=== PATIENT | female | born 1960 | race Caucasian/White ===

== ENCOUNTER 2024-01-10 13:39 | Outpatient (AMB) | payer MEDICARE, SELFPAY ==
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
[2024-01-10 13:47] VITALS: BP 138/73; PULSE 65; RESP 18; TEMP 36.7; O2SAT 96
== END 2024-01-10 14:55 | disposition home or self-care (01) ==
LOC: HODAHC 13:39
PROVIDERS: PCP Student in an Organized Health Care Education/Training Program; Referring Provider Student in an Organized Health Care Education/Training Program; Supervising Provider Internal Medicine; Visit Provider Student in an Organized Health Care Education/Training Program
DX: R42 Dizziness and giddiness (principal); R07.9 Chest pain, unspecified; E11.65 Type 2 diabetes mellitus with hyperglycemia; Z79.4 Long term (current) use of insulin; E55.9 Vitamin D deficiency, unspecified; I10 Essential (primary) hypertension; Z95.0 Presence of cardiac pacemaker
CPT/HCPCS: 99213; G0463

== ENCOUNTER 2024-03-31 17:40 | Emergency (ER) | payer MEDICARE, SELFPAY ==
[2024-03-31 17:42] VITALS: BP 184/99; PULSE 100; RESP 18; TEMP 36.8; O2SAT 96
[2024-03-31 17:44] VITALS: BMI 31.3
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
[2024-03-31 18:48] LABS: Basophils # (Auto) 0.1 Thou/mm3 (0.0-0.2); Basophils % (Auto) 1 % (0-2.5); Eosinophils # (Auto) 0.1 Thou/mm3 (0.0-0.5); Eosinophils % (Auto) 1 % (0-10); Hematocrit 44.1 % (36.0-46.0); Hemoglobin 15.1 g/dL (12.0-16.0); Immature Granulocytes % (Auto) 1 % (0-0); Immature Granulocytes Auto 0.06 Thou/mm3 (0.00-0.00); Lymphocytes # (Auto) 2.6 Thou/mm3 (1.0-4.8); Lymphocytes % (Auto) 36 % (10-50); Mean Corpuscular HGB Conc 34.2 g/dl (31.0-37.0); Mean Corpuscular Hemoglobin 29.8 pg (25.0-35.0); Mean Corpuscular Volume 87 fL (80-100); Monocytes # (Auto) 0.6 Thou/mm3 (0.0-0.8); Monocytes % (Auto) 8 % (0-12); Neutrophils % (Auto) 54 % (37-80); Nucleated Red Blood Cell % 0 /100 WBC (0); Platelet Count 190 Thou/mm3 (140-440); RDW Standard Deviation 41.9 fL (36.4-46.3); Red Blood Count 5.07 Miln/mm3 (4.00-5.20); White Blood Count 7.4 Thou/mm3 (3.6-11.0)
[2024-03-31 19:03] VITALS: BP 179/102; PULSE 88; RESP 18; TEMP 36.7; O2SAT 97
[2024-03-31 19:27] LABS: Alanine Aminotransferase 18 U/L (10-49); Albumin, Serum 4.1 gm/dL (3.4-4.8); Albumin/Globulin Ratio 1.4 (1.2-2.2); Alkaline Phosphatase 120 U/L (46-116); Anion Gap 9 (7-16); Aspartate Amino Transferase 18 U/L (0-34); BUN/Creatinine Ratio 11 Ratio (12-20); Bilirubin,Total 0.7 mg/dL (0.3-1.2); Blood Urea Nitrogen 9 mg/dL (9-23); Calcium 11.1 mg/dL (8.3-10.6); Calcium (Corrected) 11.1 mg/dL (8.5-10.1); Carbon Dioxide 24.2 mMol/L (20.0-31.0); Chloride 103 mMol/L (98-107); Creatinine (Component) 0.8 mg/dL (0.6-1.3); Estimated Creatinine Clearance 82.1 mL/min (>60); Globulin 2.9 gm/dL (2.3-3.5); Osmolality,Calculated 287 (275-295); Potassium 4.6 mMol/L (3.4-5.1); Sodium 136 mMol/L (136-145); eGFR > 60 See Note
[2024-03-31 19:32] LABS: Glucose 401 mg/dL (74-106)
[2024-03-31 19:35] VITALS: PULSE 90; RESP 16; O2SAT 98
--- NOTE | 2024-03-31 21:00 | PC.NURSE ---
Do FSBS Q1H X 3 after administering Insulin SQ per Roberto SHEETS.
--- NOTE | 2024-03-31 21:10 | PC.NURSE ---
Pt refused Insulin, FSBS 351 mg/dl, Roberto SHEETS informed.
[2024-03-31 21:48] VITALS: BP 91/53; PULSE 94; RESP 20; TEMP 36.7; O2SAT 97
[2024-03-31 22:44] LABS: Collection Type, Urine Clean Catch
--- NOTE | 2024-03-31 23:05 | PD.EDADDENDU ---
Emergency Room Addendum Addendum Narrative: 2300: Care assumed from Roberto Reyes NP. Past medical, surgical, social and family history reviewed. Vitals and home medications reviewed. Results and treatment plan discussed. I will assume the care of the patient at this time and will follow the patient, pending medical clearance for crisis evaluation. Please refer to the emergency department record for history and examination from initial visit. Patient is medically clear for crisis evaluation. The patient was placed in ED observation care at 03/31/24 at 2355 hours. The patient was placed in ED observation care because of pending psychiatric evaluation. The patients past medical history, social history, and family history were reviewed. The plan of care will include serial examinations. 0600: Care signed out to Dr. Wade (emergency physician). Past medical, surgical, social and family history reviewed. Vitals and home medications reviewed. Results and treatment plan discussed. They will assume the care of the patient at this time and will follow the patient, pending crisis evaluation.
[2024-03-31 23:11] LABS: Amphetamine/Methamp Scrn,U Negative (Negative); Barbiturate Screen,Urine Negative (Negative); Benzodiazepines Screen,Urine Negative (Negative); Benzoylecgonine Screen, Ur Negative (Negative); Fentanyl Screen,Urine Negative (Negative); Opiate Screen,Urine Negative (Negative); THC Screen,Urine Negative (Negative)
[2024-03-31 23:26] LABS: Bacteria,Urine Rare; Bilirubin,Urine Negative (Negative); Blood,Urine Negative (Negative); Clarity,Urine Clear (Clear/Hazy); Color,Urine Lt-Yellow (Lt Yel-Yel); Glucose, Urine 4+ (Negative); Ketones,Urine 2+ (Negative); Leukocyte Esterase,Urine Negative (Negative); Nitrite,Urine Negative (Negative); Protein,Urine Negative (Neg - Trace); RBC,Urine 7 /hpf (0-3); Specific Gravity,Urine 1.028 (1.001-1.035); Squamous Epithelial Cell,Urine < 1 /hpf (0-5); Urobilinogen,Urine Negative mg/dL (0.0-1.0); WBC,Urine 3 /hpf (0-5)
[2024-04-01] VITALS (7 sets, daily range): BP systolic 117–147; BP diastolic 67–82; PULSE 70–82; RESP 16–22; TEMP 36.2–36.8; O2SAT 95–96
--- NOTE | 2024-04-01 00:54 | PC.NURSE ---
Sleeping, no distress noted.
--- NOTE | 2024-04-01 07:07 | PD.EDADDENDU ---
Emergency Room Addendum <Janene Carrasquillo - Last Filed: 04/01/24 07:08> Addendum Narrative: 0600: Care assumed from Dr. Graves, the previous shift emergency physician. Past medical, surgical, social and family history reviewed. Vitals and home medications reviewed. I will assume the care of the patient at this time, pending mental health evaluation. Please refer to the emergency department record for history and examination from initial visit.? <Rian Wade MD - Last Filed: 04/01/24 17:23> Addendum Narrative: 0600: Care assumed from Dr. Graves, the previous shift emergency physician. Past medical, surgical, social and family history reviewed. Vitals and home medications reviewed. I will assume the care of the patient at this time, pending mental health evaluation. Please refer to the emergency department record for history and examination from initial visit. I was told that the patient on high blood sugar is secondary to the fact that she is diabetic and she refused insulin. By 4 PM, the blood sugar is still 470. We literally beg her to receive insulin the same dose that she takes at home which is lispro 12 units subcu 3 times daily. And finally she relented and let us gave it to her. She also requesting tramadol. She said that she used to take tramadol for chronic pain. And because she has no contraindication to tramadol, I will put her on some tramadol for pain. Twelve-lead EKG at 1704 interpreted by me: Normal sinus rhythm. Heart rate of 80. Old Q waves are noted in leads III and aVF. No ST segment elevation or depression. No PVC. No STEMI. Regular rate and rhythm. 6 PM, the patient is still pending 5150 placement, she is stable and is signed out to Dr. Graves
--- NOTE | 2024-04-01 07:31 | PC.NURSE ---
PT ASLEEP IN BED IN NO APPARENT DISTRESS. PT DENIES PAIN OR DISCOMFORT. PT DENIES SI/HI. PT DENIES AUDITORY OR VISUAL HALLUCINATIONS. PT COOPERATIVE. 1 TO 1 SITTER AT BEDSIDE
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
[2024-04-01] MEDS: traMADol HCL 50 MG TABLET PO (15:12)
--- NOTE | 2024-04-01 16:52 | EKG_ITS ---
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
[2024-04-01] MEDS: INSULIN LISPRO (AdmeLOG) 1 UNIT/0.01 ML UNIT 12 UNIT SC (16:54)
--- NOTE | 2024-04-01 17:18 | PC.CC ---
1718 ASWCaty received a call that patient will remain in there queue.
--- NOTE | 2024-04-01 18:15 | EDNOTE_ITS ---
Emergency Room Addendum <Natalee Alaniz - Last Filed: 04/01/24 20:03> Addendum Narrative: 1800: Care assumed from Dr. Wade, the previous shift emergency physician. Past medical, surgical, social and family history reviewed. Vitals and home medications reviewed. I will assume the care of the patient at this time, pending placement. Please refer to the emergency department record for history and examination. While in ED observation the patient will have access to water, food, and personal hygiene. If the patient takes home medication(s), they will be continued in ED observation. Physical exam by me shows patient under no acute distress at this time. 0600: Signed out to [facility] provider, pending serial examinations and final disposition. <Maribell Goodwin - Last Filed: 04/02/24 03:24> Addendum Narrative: 1800: Care assumed from Dr. Wade, the previous shift emergency physician. Past medical, surgical, social and family history reviewed. Vitals and home medications reviewed. I will assume the care of the patient at this time, pending placement. Please refer to the emergency department record for history and examination. While in ED observation the patient will have access to water, food, and personal hygiene. If the patient takes home medication(s), they will be patrick nued in ED observation. Physical exam by me shows patient under no acute distress at this time. 0600: Signed out to [facility] provider, pending placement. Attestation <Natalee Alaniz - Last Filed: 04/01/24 20:03> Attestation Scribe Attestation: Heidi Whatley, am scribing for and in the presence of Dr. Graves. Provider Notation: Although this document has been carefully reviewed, there may still be some phonetic and other typographical errors. These errors are purely grammatical due to imperfections in the software program and should not be construed in any way to compromise the substance of the patient's medical care during this visit.
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
--- NOTE | 2024-04-01 23:58 | PC.NURSE ---
2330 ASSUMED CARE OF PT AT THIS TIME. SITTER AT BEDSIDE.
[2024-04-02 01:11] VITALS: BP 142/95; PULSE 72; RESP 19; TEMP 36.6; O2SAT 96
--- NOTE | 2024-04-02 02:54 | PC.NURSE ---
0000 ASKED PT IF I COULD CHECK HER GLUCOSE AND SHE SAID NO BECAUSE SHE HAD JUST BEEN GIVEN A SANDWICH TO EAT.
[2024-04-02 05:49] VITALS: BP 116/66; PULSE 70; RESP 19; TEMP 36.5; O2SAT 96
--- NOTE | 2024-04-02 06:17 | PC.NURSE ---
0600 PT WOULD NOT ALLOW NURSE TO GIVE SC INSULIN. PT STATES SHE WANTS TO DO IT HERSELF.
--- NOTE | 2024-04-02 07:15 | PC.NURSE ---
PT SLEEPING WITH 1:1 SITTER
--- NOTE | 2024-04-02 07:16 | PD.EDADDENDU ---
Emergency Room Addendum <Carlie Steven - Last Filed: 04/02/24 11:44> Addendum Narrative: 0600: Care assumed from Dr. Leblanc, the previous shift emergency physician. Past medical, surgical, social and family history reviewed. Vitals and home medications reviewed. I will assume the care of the patient at this time, pending placement. The patient was placed in ED observation care at 04/02/2024 at 0600 hours. The patient was placed in ED observation care because of undifferentiated decompensated behavioral health evaluation, no behavioral health bed available. The patients past medical history, social history, and family history were reviewed. The plan of care will include serial examinations. Please refer to the emergency department record for history and examination.? While in ED observation the patient will have access to water, food, and personal hygiene. If the patient takes home medication(s), they will be continued in ED observation. Physical exam by me shows patient under no acute distress at this time. 1025: Cleared by CRISIS. Safety plan in place. Patient will be discharged. 1110: EMS here to take the patient to [facility]. ED observation care ended. <Delano Leblanc MD - Last Filed: 04/02/24 11:49> Addendum Narrative: 0600: Care assumed from Dr. Leblanc, the previous shift emergency physician. Past medical, surgical, social and family history reviewed. Vitals and home medications reviewed. I will assume the care of the patient at this time, pending placement. The patient was placed in ED observation care at 04/02/2024 at 0600 hours. The patient was placed in ED observation care because of undifferentiated decompensated behavioral health evaluation, no behavioral health bed available. The patients past medical history, social history, and family history were reviewed. The plan of care will include serial examinations. Please refer to the emergency department record for history and examination.? While in ED observation the patient will have access to water, food, and personal hygiene. If the patient takes home medication(s), they will be continued in ED observation. Physical exam by me shows patient under no acute distress at this time. 1025: Cleared by CRISIS. Safety plan in place. Patient will be discharged. 1110: EMS here to take the patient to [facility]. ED observation care ended. enterprise services manager reevaluate this patient felt she was cleared to go back to her facility. Notes she has been uncooperative most of the time but she has had no more outburst and she is not threatening anybody at this time.
[2024-04-02 08:17] VITALS: BP 130/62; PULSE 66; RESP 18; TEMP 36.5; O2SAT 96
[2024-04-02 09:00] VITALS: BP 125/66; PULSE 68; RESP 18; TEMP 36.7; O2SAT 97
--- NOTE | 2024-04-02 10:43 | PC.SS ---
Patient is a 63 year old female BIBA currently on a 5150-hold by [facility] Daniela Ramirez for DTO. ASWRebeca made wlvz-nq-ydvu contact with the patient introduced self, role, and reason for visit. ASW disclosed limits of confidentiality. Patient appeared alert and oriented to self, place and situation. Patient made appropriate eye contact and engaged with ASW during this assessment. Patient participated and answered questions appropriately. Patient reports she does not recall why [facility] Crisis was called out to [facility]. ASW explored with the patient if she was making threats to staff, other residents, or 13 year minor. Patient denied the allegations. Patient was provided with update of no current accepting [facility] facility and re-evaluation. Today, the patient is denying suicidal and homicidal ideations, visual and auditory hallucinations. The patient informs she is willing to safety plan. Patient is willing to return to [facility] and have mental health appointments arranged for outpatient follow up. Patient reports receiving 5,000$ of monetary assistance from spouse [employer]. Patient informs she is able to ambulate with assistance from walker, at bed side. Patient informs she would like to seek alternative options for placement once returning to [facility]. The patient agreeable with safety plan with appropriate referrals/resources. Patient provided verbal consent to contact [facility]. Patient is eager to leave the Hospital and be discharged. Patient states ?I am not crazy?. ?I do not want to kill myself or others, it?s against my zoroastrianism?. ?I [facility] to go to [facility] Patient informed of different options and is agreeable with returning to [facility] with services in place. After clinical consultation with Care Gameplay Programmer, Lucy Mendez LCSW, decision was made of current 5150 hold being rescinded as patient no longer meeting 5150 criteria. The patient agreeable with safety plan with appropriate referrals/resources. Patient provided verbal consent to contact [facility]. Contacted [facility] staff, Lucille Lake was contacted and informs patient is able to return back. Resources/referrals made and provided for the patient. Transportation for the patient scheduled for 11:15am via [facility] bus. Medical physician Dr Parry, charge nurse, and bed side nurse made aware of discharge plan. The patient declines family to be updated at this time. Referrals to [facility] and Jorje Ortiz completed. Patient provided with referral information and community resources including mental health, local authorities and additional community service providers. Patient informs to follow up with primary care at the [facility], attempted to schedule appointment for the patient however no answer. Patient provided with phone/address for further follow up. ASW to notify [facility] Ortiz of 5150 hold being rescinded with safety plan in place.
[2024-04-02 11:00] VITALS: BP 148/84; PULSE 68; RESP 16; TEMP 36.6; O2SAT 97
== END 2024-04-02 11:30 | disposition home or self-care (01) ==
PROVIDERS: Registered Nurse General Practice; Emergency Provider Emergency Medicine
DX: R45.850 Homicidal ideations (principal); E11.65 Type 2 diabetes mellitus with hyperglycemia
CPT/HCPCS: 36415; 80053; 80307; 81001; 85025; 93005; 96127; 96372; 99283; J1815; A9270

== ENCOUNTER 2024-04-02 20:39 | Emergency (ER) | payer MEDICARE, SELFPAY ==
[2024-04-02 20:42] VITALS: BMI 31.3
[2024-04-02 20:43] VITALS: BP 186/84; PULSE 80; RESP 18; TEMP 36.6; O2SAT 96
--- NOTE | 2024-04-02 20:45 | XR_ITS ---
Examination: AP chest single view Technique one AP portable upright chest single view Exam date and time: April 02, 20242054 hrs. Comparison September 13, 2023 Indications: Onset chest pain today. Findings: Normal heart size Cardiac leads partly visualized Mild vascular congestion No lobar pneumonia Moderate osteopenia Impression: Mild vascular congestion
--- NOTE | 2024-04-02 20:45 | EKG_ITS ---
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
--- NOTE | 2024-04-02 20:45 | PD.EDADULT ---
ED General RME/HPI General Chief complaint: Chest Pain Stated complaint: CHEST WALL PAIN Time Seen by Provider: 04/02/24 20:45 Arrival date/time: 04/02/24 20:39 CC: Chest pain HPI patient presents to the ER via EMS with chest pain onset 5 minutes before EMS arrived patient states she had 7 episodes intermittent nature each lasting approximately 30 seconds left anterior chest patient demonstrates by pointing to her left breast. Patient denies any other new pain related to this. The patient states she is in pain all the time . Review the record show the patient was discharged from this hospital several days ago for a psychiatric issues. Patient currently denies fever nausea vomiting headache that is new shortness of breath or difficulty breathing. Currently the chest pain is a 1-2 on a 10 scale nonradiating dull in nature Related Data Home Medications ?Medication ?Instructions ?Recorded ?Confirmed pravastatin 40 mg tablet 40 mg PO QPM 08/05/23 01/10/24 Previous Rx's ?Medication ?Instructions ?Recorded blood-glucose meter #1 ea 08/10/23 insulin glargine 100 unit/mL 50 unit (0.5 mL) SCi HS #10 mL 08/11/23 subcutaneous solution (Lantus U-100 Insulin) Held on 08/24/23. 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 meter,continuous #1 ea 08/24/23 (FreeStyle Branden 3 [place]) gabapentin 300 mg capsule 300 mg PO BID #120 caps 09/11/23 Held on 01/10/24. 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 sensor (FreeStyle #2 ea 10/11/23 Branden 3 Sensor device) insulin syringe-needle U-100 1 mL #100 ea 10/11/23 28 gauge x 1/2 (BD Insulin Syringe) nitrofurantoin macrocrystal 100 mg 100 mg PO BID #10 caps 11/08/23 capsule blood sugar diagnostic (Blood #50 ea 01/10/24 Glucose Test strips) blood-glucose meter (Blood Glucose #1 ea 01/10/24 Monitoring kit) carvedilol 6.25 mg tablet 6.25 mg PO BID #60 tabs 01/10/24 cholecalciferol (vitamin D3) 1,250 1,250 mcg PO QMONTH #3 tabs 01/10/24 mcg (50,000 unit) tablet duloxetine 60 mg capsule,delayed 60 mg PO QDAY #30 caps 01/10/24 release insulin lispro-aabc 100 unit/mL 12 unit (0.12 mL) subcut TID 01/10/24 subcutaneous solution Diabetes 30 days #10.8 mL lancets 33 gauge (TRUEplus Lancets) #100 ea 01/10/24 meclizine 25 mg tablet 25 mg PO QDAY PRN dizziness #10 01/10/24 tabs Allergies Allergy/AdvReac Type Severity Reaction Status Date / Time codeine Allergy Severe DYSPNEA Verified 01/10/24 13:47 iodine Allergy Severe HIVES Verified 01/10/24 13:47 erythromycin base Allergy Intermediate VOMITING Verified 01/10/24 13:47 atorvastatin AdvReac Severe BODY ACHES Verified 01/10/24 13:47 STATINS AdvReac Severe CONSTIPATED,ABD Uncoded 01/10/24 13:47 CRAMPING Review of Systems Review of Systems Narrative Review of Systems: GEN: No fever, no chills, no weight loss EYES: No discharge, no visual changes, no pain HEENT: No ear pain, no congestion, no sore throat PULM: No shortness of breath, no cough, no congestion CV: + chest pain, no dyspnea on exertion, no palpitations GI: No nausea, no vomiting, no diarrhea, no pain, no constipation : No frequency, no urgency, no dysuria MUSC/SKEL: No joint pain, no back pain SKIN: No rash PSYCH: No hallucinations, no depression HEME/LYMPH: No easy bleeding or bruising tendencies NEURO: No weakness, no headache Past Medical History Past Medical History CARDIAC: Positive Cardiac Disorders, Hypercholesterolemia, Congestive Heart Failure and Hypertension RESPIRATORY: Negative Chronic Obstructive Pulmonary Disease (COPD) or Asthma GENITOURINARY: Negative Renal Disease ENDOCRINE: Positive Endocrine Disorders and Diabetes Mellitus Type 2; Negative Diabetes Mellitus Type 1 HEMATOLOGIC: Negative Sickle Cell Disease PSYCHO/SOCIAL: Positive Depression OTHER HISTORY: Positive Cancer and Cervical Cancer Family History FAMILY HISTORY: Positive Family Cardiac Disorders Surgical History SURGICAL: Positive Pacemaker and Hysterectomy Social History SMOKING STATUS: Never smoker ED Exam Narrative Physical exam: [General: Appears not in any acute distress Head normocephalic HEENT: Within acceptable limits Neck is supple nontender Chest equal chest rise nontender to palpation Respiratory: Clear to auscultation no wheezes crackles or rubs CV: Rate rhythm is regular no murmurs rubs or clicks Abdomen is soft nontender no masses positive bowel sounds all 4 quadrants Back: No CVA tenderness no spinous process tenderness from cervical spine thoracic and lumbar spine Skin: Intact no petechiae rash induration ulceration or crepitus Extremities: Moving all extremity against resistance cap refill less than 2 seconds neurosensory intact Neuro: Awake alert oriented x3 Glascow coma 15 no focal deficits] Course Quality Measures none Orders Category Date Time Status EKG (ED ONLY) *Do not use* NOW Care 04/02/24 20:45 Completed EKG (ED Only) Stat Exams 04/02/24 20:45 Draft XR chest 1V Stat Exams 04/02/24 20:45 Completed B-Type Natriuretic Peptide Stat Lab 04/02/24 21:05 Completed CBC Stat Lab 04/02/24 21:05 Completed Comprehensive Metabolic Panel Stat Lab 04/02/24 21:05 Completed Drug Screen,Urine Stat Lab 04/02/24 20:50 Completed LDH (Lactate Dehydrogenase) Stat Lab 04/02/24 21:05 Completed Magnesium Stat Lab 04/02/24 21:05 Completed Partial Thromboplastin Time Stat Lab 04/02/24 21:05 Completed Prothrombin Time with INR Stat Lab 04/02/24 21:05 Completed Troponin I Stat Lab 04/02/24 21:05 Completed Urinalysis Stat Lab 04/02/24 20:50 Completed Insulin Regular Med 04/02/24 21:59 Discontinued 10 unit SC X1 ONE Vital Signs Vital signs: Vital Signs Temperature 98 F 04/02/24 20:43 Pulse Rate 80 04/02/24 20:43 Respiratory Rate 18 04/02/24 20:43 Blood Pressure 186/84 H 04/02/24 20:43 Pulse Oximetry (%) 96 04/02/24 20:43 Oxygen Delivery Method Room Air 04/02/24 20:43 [facility] Patient data External records reviewed:: [facility] previous records and EMS form Clinical information provided by:: patient and EMS Social determinants that could affect healthcare access:: none Patient has the following chronic illnesses:: Diabetes hypertension hyperlipidemia depression How is presenting disease/condition affected by chronic disease/condition?: uneffected by Evaluation data The following diagnostics were reviewed and interpreted by me:: lab results, radiology exam(s) and EKG tracing(s) Lab and/or radiology exams considered but not ordered:: EKG performed at 2054 shows a ventricular rate of 81 HI interval 177 QRS of 85 QTc of 394 this is sinus rhythm nonspecific ST segment changes. This is a slightly abnormal EKG. CBC shows no leukocytosis H&H of 15.4 and 46.1 respectively with platelets at 194. Coags within acceptable limits CMP shows no acute electrolyte imbalances other than a blood glucose of 495. Calcium of 11.3 alk phos at 127 AST ALT and T. bili within acceptable limits Troponin is 0.027 BNP at 38. Urine is negative for UTI. Interpretation Summary: Hyperglycemia, which is the common denominator for patient's previous at visit as well however that time she refused insulin today she excepted insulin subcu. Patient is awake alert and oriented patient to be discharged home with hyperglycemia and chest pain she is to follow-up with her primary care provider if there is a worsening of symptoms return the emergency room for reevaluation. Medications Medications considered but not ordered:: None Medication administrations:: Medication Administration History Discontinued Medications Insulin Human Regular (Insulin Hum Regular 1 Unit/0.01 Ml (Per Unit)) 10 unit SC X1 ONE Stop: 04/02/24 22:00 Last Admin: 04/02/24 22:13 Dose: 10 unit Documented By: STAN Co-signed By: None Consultations Consultation(s) initiated? (list below): No Diagnosis Differential Diagnosis ED Complaint MDM: ACS AL pneumonia Most likely diagnosis given after review of the tests above:: Chest pain Admission Indicated Admission indicated?: not indicated Explain why admission is indicated or not indicated:: Stable for outpatient follow-up Admission Request Was there a request for admission?: No Disposition Plan Disposition Plan: Discharge Discharge Attestation Discharge Attestation: The patient and all family members were given an opportunity to ask questions and understood the discharge instructions. Discharge instructions specifically effects, indications for sooner follow up or return to the emergency department, and the expected course of current diagnosis. Patient condition: Stable Medical Decision Making Differential Diagnosis Differential Diagnosis: ACS AL pneumonia Lab Data 04/02/24 21:05 04/02/24 21:05 Labs: Lab Results 04/02/24 04/02/24 Range/Units 20:50 21:05 WBC 6.2 (3.6-11.0) Thou/mm3 RBC 5.20 (4.00-5.20) Miln/mm3 Hgb 15.4 (12.0-16.0) g/dL Hct 46.1 H (36.0-46.0) % MCV 89 (80-100) fL MCH 29.6 (25.0-35.0) pg MCHC 33.4 (31.0-37.0) g/dl RDW Std Deviation 43.3 (36.4-46.3) fL Plt Count 194 (140-440) Thou/mm3 Neut % (Auto) 40 (37-80) % Lymph % (Auto) 48 (10-50) % [place] % (Auto) 7 (0-12) % Eos % (Auto) 2 (0-10) % Baso % (Auto) 1 (0-2.5) % Neut # (Auto) 2.5 (1.8-7.7) Thou/mm3 Lymph # (Auto) 3.0 (1.0-4.8) Thou/mm3 [place] # (Auto) 0.5 (0.0-0.8) Thou/mm3 Eos # (Auto) 0.2 (0.0-0.5) Thou/mm3 Baso # (Auto) 0.1 (0.0-0.2) Thou/mm3 Immature Gran # (Auto) 0.05 H (0.00-0.00) Thou/mm3 Absolute Nucleated RBC 0.00 (0.00-0.00) Thou/mm3 Immature Gran % 1 H (0-0) % Nucleated RBC % 0 (0) /100 WBC PT 10.4 (9.0-12.2) Seconds INR 0.9 (0.9-1.3) APTT 24.1 (22.0-36.0) Seconds Sodium 139 (136-145) mMol/L Potassium 4.5 (3.4-5.1) mMol/L Chloride 106 (98-107) mMol/L Carbon Dioxide 26.3 (20.0-31.0) mMol/L Anion Gap 7 (7-16) BUN 14 (9-23) mg/dL Creatinine 0.8 (0.6-1.3) mg/dL Estim Creat Clear Calc 82.1 (>60) mL/min eGFR > 60 (60 - ) See Note BUN/Creatinine Ratio 18 (12-20) Ratio Glucose 495 H* D (74-106) mg/dL Calculated Osmolality 300 H (275-295) Calcium 11.3 H (8.3-10.6) mg/dL Corrected Calcium 11.3 H (8.5-10.1) mg/dL Magnesium 1.8 (1.6-2.6) mg/dL Total Bilirubin 0.5 (0.3-1.2) mg/dL AST 15 (0-34) U/L ALT 19 (10-49) U/L Alkaline Phosphatase 127 H (46-116) U/L Lactate Dehydrogenase 157 (120-246) U/L Troponin I 0.027 (0.0-0.045) ng/mL B-Natriuretic Peptide 38 (0-100) pg/mL Total Protein 7.0 (5.7-8.2) gm/dL Albumin 4.0 (3.4-4.8) gm/dL Globulin 3.0 (2.3-3.5) gm/dL Albumin/Globulin Ratio 1.3 (1.2-2.2) Ur Collection Type Clean Catch Urine Color Colorless A (Lt Yel-Yel) Urine Clarity Clear (Clear/Hazy) Urine pH 6.0 (5.0-7.0) Ur Specific [place] 1.039 H (1.001-1.035) Urine Protein Negative (Neg - Trace) Urine Glucose (UA) 4+ A (Negative) Urine Ketones Negative (Negative) Urine Blood Negative (Negative) Urine Nitrite Negative (Negative) Urine Bilirubin Negative (Negative) Urine Urobilinogen (Auto) Negative (0.0-1.0) mg/dL Ur Leukocyte Esterase Positive (Negative) Urine RBC 4 H (0-3) /hpf Urine WBC 17 H (0-5) /hpf Ur Squamous Epith Cells < 1 (0-5) /hpf Urine Bacteria None (None) Urine Opiates Screen Negative (Negative) Urine Fentanyl Screen Negative (Negative) Ur Barbiturates Screen Negative (Negative) U Amphetamin/Meth Scrn Negative (Negative) U Benzodiazepines Scrn Negative (Negative) U Cocaine Metab Screen Negative (Negative) U Marijuana (THC) Screen Negative (Negative) Discharge Plan Plan Patient Disposition: HOME (Self Care) Patient condition on transfer: Stable Prescriptions/Referrals Prescriptions/Med Rec: No Action gabapentin 300 mg capsule 300 mg PO BID Qty: 120 0RF (DME) FreeStyle Branden 3 [place] Misc See Rx Instructions .Route Qty: 1 0RF Rx Instructions: As directed (DME) FreeStyle Branden 3 Sensor Device See Rx Instructions .Route Qty: 2 3RF Rx Instructions: As directed (DME) insulin syringe-needle U-100 [BD Insulin Syringe] 1 mL 28 gauge x 1/2 syringe See Rx Instructions .Route Qty: 100 5RF Rx Instructions: Use TID and PRN with Lispro Insulin Sliding Scale meclizine 25 mg tablet 25 mg PO QDAY PRN (Reason: dizziness) Qty: 10 0RF (DME) lancets [TRUEplus Lancets] 33 gauge misc See Rx Instructions .Route Qty: 100 0RF Rx Instructions: As directed (DME) Blood Glucose Test Strip See Rx Instructions .Route Qty: 50 0RF Rx Instructions: As directed (DME) blood-glucose meter [Blood Glucose Monitoring] Kit See Rx Instructions .Route Qty: 1 1RF Rx Instructions: As directed carvedilol 6.25 mg tablet 6.25 mg PO BID Qty: 60 3RF Rx Instructions: must administer with a meal/food duloxetine 60 mg capsule,delayed release(DR/EC) 60 mg PO QDAY Qty: 30 3RF cholecalciferol (vitamin D3) 1,250 mcg (50,000 unit) tablet 1,250 mcg PO QMONTH Qty: 3 0RF insulin lispro-aabc 100 unit/mL solution 12 unit subcut TID MDD 45 units 30 Days Qty: 10.8 5RF Rx Instructions: Use according to scale from appt. nitrofurantoin macrocrystal 100 mg capsule 100 mg PO BID Qty: 10 0RF Rx Instructions: must administer with a meal/food pravastatin 40 mg Tablet 40 mg PO QPM (DME) blood-glucose meter Kit See Rx Instructions .Route Qty: 1 0RF Rx Instructions: As directed insulin glargine [Lantus U-100 Insulin] 100 unit/mL Solution 50 unit SCi HS Qty: 10 0RF Referrals: No Primary/Family,Physician [Primary Care Provider] - In 1 week Problem List Clinical Impression: Chest pain, Hyperglycemia Patient/Caregiver Discharge Instructions Education Materials: High Blood Sugar (Hyperglycemia), ED Chest Pain, Uncertain Cause Print Language: Turkmen Stand Alone Forms: Yolanda Award Info., Work/School Release, Patient Portal Info Letter PA/[employer] Supervising Physician PA/[employer] Supervising Physician: Roberto Reyes ENP
[2024-04-02 20:55] VITALS: BP 180/119; PULSE 78; RESP 5; O2SAT 92
[2024-04-02 21:09] VITALS: BMI 31.3
[2024-04-02 21:23] LABS: Collection Type, Urine Clean Catch
[2024-04-02 21:26] LABS: Basophils # (Auto) 0.1 Thou/mm3 (0.0-0.2); Basophils % (Auto) 1 % (0-2.5); Eosinophils # (Auto) 0.2 Thou/mm3 (0.0-0.5); Eosinophils % (Auto) 2 % (0-10); Hematocrit 46.1 % (36.0-46.0); Hemoglobin 15.4 g/dL (12.0-16.0); Immature Granulocytes % (Auto) 1 % (0-0); Immature Granulocytes Auto 0.05 Thou/mm3 (0.00-0.00); Lymphocytes % (Auto) 48 % (10-50); Mean Corpuscular HGB Conc 33.4 g/dl (31.0-37.0); Mean Corpuscular Hemoglobin 29.6 pg (25.0-35.0); Mean Corpuscular Volume 89 fL (80-100); Monocytes # (Auto) 0.5 Thou/mm3 (0.0-0.8); Monocytes % (Auto) 7 % (0-12); Neutrophils # (Auto) 2.5 Thou/mm3 (1.8-7.7); Neutrophils % (Auto) 40 % (37-80); Nucleated Red Blood Cell % 0 /100 WBC (0); Platelet Count 194 Thou/mm3 (140-440); RDW Standard Deviation 43.3 fL (36.4-46.3); White Blood Count 6.2 Thou/mm3 (3.6-11.0)
[2024-04-02 21:31] LABS: Bilirubin,Urine Negative (Negative); Blood,Urine Negative (Negative); Clarity,Urine Clear (Clear/Hazy); Color,Urine Colorless (Lt Yel-Yel); Glucose, Urine 4+ (Negative); Ketones,Urine Negative (Negative); Leukocyte Esterase,Urine Positive (Negative); Nitrite,Urine Negative (Negative); Protein,Urine Negative (Neg - Trace); RBC,Urine 4 /hpf (0-3); Specific Gravity,Urine 1.039 (1.001-1.035); Squamous Epithelial Cell,Urine < 1 /hpf (0-5); Urobilinogen,Urine Negative mg/dL (0.0-1.0); WBC,Urine 17 /hpf (0-5)
[2024-04-02 21:40] LABS: B-Type Natriuretic Peptide 38 pg/mL (0-100)
[2024-04-02 21:45] LABS: INR 0.9 (0.9-1.3); Partial Thromboplastin Time 24.1 Seconds (22.0-36.0); Prothrombin Time 10.4 Seconds (9.0-12.2)
[2024-04-02 21:46] LABS: Alanine Aminotransferase 19 U/L (10-49); Albumin/Globulin Ratio 1.3 (1.2-2.2); Alkaline Phosphatase 127 U/L (46-116); Anion Gap 7 (7-16); Aspartate Amino Transferase 15 U/L (0-34); BUN/Creatinine Ratio 18 Ratio (12-20); Bilirubin,Total 0.5 mg/dL (0.3-1.2); Blood Urea Nitrogen 14 mg/dL (9-23); Calcium 11.3 mg/dL (8.3-10.6); Calcium (Corrected) 11.3 mg/dL (8.5-10.1); Carbon Dioxide 26.3 mMol/L (20.0-31.0); Chloride 106 mMol/L (98-107); Creatinine (Component) 0.8 mg/dL (0.6-1.3); Estimated Creatinine Clearance 82.1 mL/min (>60); Magnesium 1.8 mg/dL (1.6-2.6); Osmolality,Calculated 300 (275-295); Potassium 4.5 mMol/L (3.4-5.1); Sodium 139 mMol/L (136-145); Troponin I 0.027 ng/mL (0.0-0.045); eGFR > 60 See Note
[2024-04-02 21:51] LABS: Glucose 495 mg/dL (74-106)
[2024-04-02 21:57] LABS: Amphetamine/Methamp Scrn,U Negative (Negative); Barbiturate Screen,Urine Negative (Negative); Benzodiazepines Screen,Urine Negative (Negative); Benzoylecgonine Screen, Ur Negative (Negative); Fentanyl Screen,Urine Negative (Negative); Opiate Screen,Urine Negative (Negative); THC Screen,Urine Negative (Negative)
[2024-04-02 22:12] LABS: LDH (Lactate Dehydrogenase) 157 U/L (120-246)
[2024-04-02] MEDS: INSULIN HUM REGULAR 1 UNIT/0.01 ML (PER UNIT) 10 UNIT SC (22:13)
[2024-04-02 22:16] VITALS: BP 163/82; PULSE 76; RESP 26; O2SAT 95
[2024-04-02 22:17] VITALS: BP 163/82; PULSE 76; RESP 19; TEMP 36.7; O2SAT 96
[2024-04-03 00:05] VITALS: PULSE 78; RESP 18; TEMP 36.9; O2SAT 97
[2024-04-03 07:10] VITALS: BP 155/84; PULSE 78; RESP 18; TEMP 36.6; O2SAT 98
--- NOTE | 2024-04-03 07:11 | PC.CC ---
ASWCaty was consulted regarding ride for patient to return back to [facility]. ASW arranged transportation back to [facility].
--- NOTE | 2024-04-03 07:15 | PC.NURSE ---
Pt given taxi voicher and taken in WC to lobby to chad for taxi
--- NOTE | 2024-04-03 07:25 | PC.NURSE ---
pt discharged at 0030. pt does not have a ride. Pt has no family that is able to pick her up. Pt lives at [facility]. Multiple attempts made to get a cab for her to go home. [facility] not answering calls. pt moved from rm 9 to rm 15 to wait until the am when we have more options to assist pt to go home.
== END 2024-04-03 07:39 | disposition home or self-care (01) ==
PROVIDERS: Registered Nurse General Practice; Emergency Provider Emergency Medicine
DX: R07.89 Other chest pain (principal); R73.9 Hyperglycemia, unspecified
CPT/HCPCS: 36415; 71045; 80053; 80307; 81001; 83615; 83735; 83880; 84484; 85025; 85610; 85730; 93005; 96372; 99283; J1815

== ENCOUNTER 2024-04-14 12:16 | Emergency (ER) | payer MEDICARE, SELFPAY ==
[2024-04-14 11:59] VITALS: PULSE 82; O2SAT 97; BMI 31.3
[2024-04-14 12:22] VITALS: BP 186/72; PULSE 75; RESP 20; TEMP 36.5; O2SAT 98
--- NOTE | 2024-04-14 13:06 | PD.EDRME ---
Rapid Medical Screening Exam RME Arrival date/time: 04/14/24 12:16 63 yo f with c/o of chronic back pain. I have greeted and performed a focused initial assessment of this patient. A comprehensive ED assessment and evaluation of the patient, analysis of all test results, and completion of the medical decision making process will be conducted by additional ED providers. Chief Complaint: Back Pain/Injury Time Seen by Provider: 04/14/24 12:44 Vital signs: Vital Signs Temperature 97.7 F 04/14/24 12:22 Pulse Rate 75 04/14/24 12:22 Respiratory Rate 20 04/14/24 12:22 Blood Pressure 186/72 H 04/14/24 12:22 Pulse Oximetry (%) 98 04/14/24 12:22 Oxygen Delivery Method Room Air 04/14/24 12:22
[2024-04-14] MEDS: KETOROLAC INJ 60 MG/2 ML VIAL 30 MG IM (13:12)
[2024-04-14] MEDS: CYCLObenzaPRINE 5 MG TABLET PO (13:12)
[2024-04-14] MEDS: LIDOCAINE 5% 1 PATCH TOP (13:16)
--- NOTE | 2024-04-14 18:08 | PD.EDBACK ---
ED Back Injury Pain RME/HPI General Chief Complaint: Back Pain/Injury Stated Complaint: BACK SPASMS SINCE YESTERDAY, L) TO R) Time Seen by Provider: 04/14/24 12:44 Source: patient Arrival date/time: 04/14/24 12:16 63-year-old female with past medical history of chronic back pain and hypertension presents emergency department complaining of bilateral lower back pain has been ongoing for several months. Patient denies any fever, chills, dysuria, bowel or bladder dysfunction, or any other associated symptoms. Mode of arrival: wheelchair Limitations: physical limitation RME / HPI RME / HPI Narrative: 04/14/24 12:16 63 yo f with c/o of chronic back pain. I have greeted and performed a focused initial assessment of this patient. A comprehensive ED assessment and evaluation of the patient, analysis of all test results, and completion of the medical decision making process will be conducted by additional ED providers. Related Data Home Medications ?Medication ?Instructions ?Recorded ?Confirmed pravastatin 40 mg tablet 40 mg PO QPM 08/05/23 01/10/24 Previous Rx's ?Medication ?Instructions ?Recorded blood-glucose meter #1 ea 08/10/23 insulin glargine 100 unit/mL 50 unit (0.5 mL) SCi HS #10 mL 08/11/23 subcutaneous solution (Lantus U-100 Insulin) Held on 08/24/23. 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 meter,continuous #1 ea 08/24/23 (FreeStyle Branden 3 [place]) gabapentin 300 mg capsule 300 mg PO BID #120 caps 09/11/23 Held on 01/10/24. 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 sensor (FreeStyle #2 ea 10/11/23 Branden 3 Sensor device) insulin syringe-needle U-100 1 mL #100 ea 10/11/23 28 gauge x 1/2 (BD Insulin Syringe) nitrofurantoin macrocrystal 100 mg 100 mg PO BID #10 caps 11/08/23 capsule blood sugar diagnostic (Blood #50 ea 01/10/24 Glucose Test strips) blood-glucose meter (Blood Glucose #1 ea 01/10/24 Monitoring kit) carvedilol 6.25 mg tablet 6.25 mg PO BID #60 tabs 01/10/24 cholecalciferol (vitamin D3) 1,250 1,250 mcg PO QMONTH #3 tabs 01/10/24 mcg (50,000 unit) tablet duloxetine 60 mg capsule,delayed 60 mg PO QDAY #30 caps 01/10/24 release insulin lispro-aabc 100 unit/mL 12 unit (0.12 mL) subcut TID 01/10/24 subcutaneous solution Diabetes 30 days #10.8 mL lancets 33 gauge (TRUEplus Lancets) #100 ea 01/10/24 meclizine 25 mg tablet 25 mg PO QDAY PRN dizziness #10 01/10/24 tabs cyclobenzaprine 10 mg tablet 10 mg PO TID PRN muscle spasm #10 04/14/24 tabs ibuprofen 600 mg tablet 600 mg PO Q8H PRN pain #20 tabs 04/14/24 Allergies Allergy/AdvReac Type Severity Reaction Status Date / Time codeine Allergy Severe DYSPNEA Verified 04/14/24 12:59 iodine Allergy Severe HIVES Verified 04/14/24 12:59 erythromycin base Allergy Intermediate VOMITING Verified 04/14/24 12:59 atorvastatin AdvReac Severe BODY ACHES Verified 04/14/24 12:59 STATINS AdvReac Severe CONSTIPATED,ABD Uncoded 04/14/24 12:59 CRAMPING Review of Systems Review of Systems Systems Reviewed: All systems reviewed, normal except as documented Constitutional Constitutional: Reports system reviewed and no additional complaints, except as documented, Denies body ache(s), Denies chills and Denies fever(s) Eyes Eyes: Reports system reviewed and no additional complaints, except as documented and Denies change in vision ENT Ears, Nose, Mouth, and Throat: Reports system reviewed and no additional complaints, except as documented, Denies disequilibrium, Denies dizziness, Denies sore throat and Denies vertigo Cardiovascular Cardiovascular: Reports system reviewed and no additional complaints, except as documented, Denies chest pain and Denies dyspnea Respiratory Respiratory: Reports system reviewed and no additional complaints, except as documented, Denies chest congestion, Denies cough and Denies dyspnea Gastrointestinal Gastrointestinal: Reports system reviewed and no additional complaints, except as documented, Denies abdominal pain, Denies nausea and Denies vomiting Musculoskeletal Musculoskeletal: Reports system reviewed and no additional complaints, except as documented, Denies abnormal gait, Denies arthralgias and Reports back pain Integumentary/Breasts Skin/Breast: Reports system reviewed and no additional complaints, except as documented, Denies erythema, Denies rash and Denies wounds Neurologic Neurologic: Reports system reviewed and no additional complaints, except as documented, Denies abnormal gait, Denies disequilibrium, Denies dizziness and Denies vertigo Past Medical History Past Medical History CARDIAC: Positive Cardiac Disorders, Hypercholesterolemia, Congestive Heart Failure and Hypertension RESPIRATORY: Negative Chronic Obstructive Pulmonary Disease (COPD) or Asthma GENITOURINARY: Negative Renal Disease ENDOCRINE: Positive Endocrine Disorders and Diabetes Mellitus Type 2; Negative Diabetes Mellitus Type 1 HEMATOLOGIC: Negative Sickle Cell Disease PSYCHO/SOCIAL: Positive Depression OTHER HISTORY: Positive Cancer and Cervical Cancer Family History FAMILY HISTORY: Positive Family Cardiac Disorders Surgical History SURGICAL: Positive Pacemaker and Hysterectomy Social History SMOKING STATUS: Former smoker ED Exam General Limitations: Present physical limitation General appearance: Present alert and in no apparent distress Head Head exam: Present atraumatic Eye Eye exam: Present normal appearance, PERRL and EOMI ENT ENT exam: Present normal exam, normal oropharynx and mucous membranes moist Neck Neck exam: Present normal inspection, full ROM and trachea midline Chest Chest inspection: Present normal inspection and symmetric chest wall rise Respiratory Respiratory exam: Present normal lung sounds bilaterally Cardiovascular Cardiovascular exam: Present regular rate, normal rhythm and normal heart sounds Abdominal Exam Abdominal exam: Present soft and normal bowel sounds Extremities Exam Extremities exam: Present normal inspection and full ROM Back Exam Back exam: Present normal inspection, full ROM and straight leg raise (L); Absent CVA tenderness (R) or CVA tenderness (L) Neurological Exam Neurological exam: Present alert, oriented X3 and CN II-XII intact Psychiatric Psychiatric exam: Present normal affect and normal mood Skin Skin exam: Present warm, dry, intact and normal color Course Quality Measures none Orders Category Date Time Status CYCLObenzaPRINE [Flexeril] Med 04/14/24 13:06 Discontinued 5 mg PO X1 ONE Ketorolac Inj [Toradol Inj] Med 04/14/24 13:06 Discontinued 30 mg IM X1 ONE Lidocaine 5% Patch [Lidoderm 5% Patch] Med 04/14/24 13:06 Discontinued 1 patch TOP X1 ONE Vital Signs Vital signs: Vital Signs Temperature 97.7 F 04/14/24 12:22 Pulse Rate 75 04/14/24 12:22 Respiratory Rate 20 04/14/24 12:22 Blood Pressure 186/72 H 04/14/24 12:22 Pulse Oximetry (%) 98 04/14/24 12:22 Oxygen Delivery Method Room Air 04/14/24 12:22 98% room air within normal limits Back Pain / Injury MDM Narrative MDM Narrative:: 63-year-old female with past medical history of chronic back pain and hypertension presents emergency department complaining of bilateral lower back pain has been ongoing for several months. Patient denies any fever, chills, dysuria, bowel or bladder dysfunction, saddle anesthesia, or any other associated symptoms. On exam no costovertebral tenderness. Straight leg raise left positive. Patient ambulatory and able to bear weight. Patient denies any numbness to any lower extremity. Patient appears nontoxic and is hemodynamically stable. Patient was given pain medication at arrival and reports significant improvement in symptoms and is ready to be discharged. Instructed patient have close follow-up with primary care provider return to emergency department for any worsening symptoms or as needed. Patient data External records reviewed:: [facility] previous records Clinical information provided by:: patient Social determinants that could affect healthcare access:: none Patient has the following chronic illnesses:: See chart How is presenting disease/condition affected by chronic disease/condition?: uneffected by Evaluation data The following diagnostics were reviewed and interpreted by me:: other (specify) (N/A) Lab and/or radiology exams considered but not ordered:: N/A Interpretation Summary: N/A Medications / Prescriptions Medications or Prescriptions considered but not ordered:: Ordered Medication administrations:: Medication Administration History Discontinued Medications Cyclobenzaprine HCl (Cyclobenzaprine 5 Mg Tablet) 5 mg PO X1 ONE Stop: 04/14/24 13:07 Last Admin: 04/14/24 13:12 Dose: 5 mg Documented By: FRANK Ketorolac Tromethamine (Ketorolac Inj 60 Mg/2 Ml Vial) 30 mg IM X1 ONE Stop: 04/14/24 13:07 Last Admin: 04/14/24 13:12 Dose: 30 mg Documented By: FRANK Lidocaine (Lidocaine 5% 1 Patch) 1 patch TOP X1 ONE Stop: 04/14/24 13:07 Last Admin: 04/14/24 13:16 Dose: 1 patch Documented By: FRANK Given Consultations Consultation(s) initiated? (list below): No Diagnosis Differential diagnosis back pain/injury: lumbar radiculopathy, sciatica, strain of lumbar region, renal colic, pyelonephritis, thoracic back pain, AAA and discitis Most likely diagnosis given after review of the tests above:: Sciatica Admission Indicated Admission indicated?: not indicated Admission Request Was there a request for admission?: No Disposition Plan Disposition Plan: Discharge Discharge Attestation Discharge Attestation: The patient and all family members were given an opportunity to ask questions and understood the discharge instructions. Discharge instructions specifically effects, indications for sooner follow up or return to the emergency department, and the expected course of current diagnosis. Patient condition: Stable Discharge Plan Plan Patient Disposition: HOME (Self Care) Disposition Comment: Stable Prescriptions/Referrals Prescriptions/Med Rec: New cyclobenzaprine 10 mg tablet 10 mg PO TID PRN (Reason: muscle spasm) Qty: 10 0RF ibuprofen 600 mg tablet 600 mg PO Q8H PRN (Reason: pain) Qty: 20 0RF No Action gabapentin 300 mg capsule 300 mg PO BID Qty: 120 0RF (DME) FreeStyle Branden 3 [place] Misc See Rx Instructions .Route Qty: 1 0RF Rx Instructions: As directed (DME) FreeStyle Branden 3 Sensor Device See Rx Instructions .Route Qty: 2 3RF Rx Instructions: As directed (DME) insulin syringe-needle U-100 [BD Insulin Syringe] 1 mL 28 gauge x 1/2 syringe See Rx Instructions .Route Qty: 100 5RF Rx Instructions: Use TID and PRN with Lispro Insulin Sliding Scale meclizine 25 mg tablet 25 mg PO QDAY PRN (Reason: dizziness) Qty: 10 0RF (DME) lancets [TRUEplus Lancets] 33 gauge misc See Rx Instructions .Route Qty: 100 0RF Rx Instructions: As directed (DME) Blood Glucose Test Strip See Rx Instructions .Route Qty: 50 0RF Rx Instructions: As directed (DME) blood-glucose meter [Blood Glucose Monitoring] Kit See Rx Instructions .Route Qty: 1 1RF Rx Instructions: As directed carvedilol 6.25 mg tablet 6.25 mg PO BID Qty: 60 3RF Rx Instructions: must administer with a meal/food duloxetine 60 mg capsule,delayed release(DR/EC) 60 mg PO QDAY Qty: 30 3RF cholecalciferol (vitamin D3) 1,250 mcg (50,000 unit) tablet 1,250 mcg PO QMONTH Qty: 3 0RF insulin lispro-aabc 100 unit/mL solution 12 unit subcut TID MDD 45 units 30 Days Qty: 10.8 5RF Rx Instructions: Use according to scale from appt. nitrofurantoin macrocrystal 100 mg capsule 100 mg PO BID Qty: 10 0RF Rx Instructions: must administer with a meal/food pravastatin 40 mg Tablet 40 mg PO QPM (DME) blood-glucose meter Kit See Rx Instructions .Route Qty: 1 0RF Rx Instructions: As directed insulin glargine [Lantus U-100 Insulin] 100 unit/mL Solution 50 unit SCi HS Qty: 10 0RF Referrals: No Primary/Family,Physician [Primary Care Provider] - In 1 week Problem List Clinical Impression: Sciatica Patient/Caregiver Discharge Instructions Discharge Activity: activity as tolerated Education Materials: ED Sciatica Additional Instructions: Drink fluids and stay hydrated. Take pain medication as prescribed. Close follow-up with primary care provider in 24 to 48 hours. Return immediately to emergency department for any worsening symptoms or as needed. Print Language: [place] Stand Alone Forms: Yolanda Award Info., Patient Portal Info Letter PA/HEAVY DUTY CUSTODIAN Supervising Physician PA/HEAVY DUTY CUSTODIAN Supervising Physician: Dr. Graves
== END 2024-04-14 18:24 | disposition home or self-care (01) ==
PROVIDERS: Emergency Provider Emergency Medicine
DX: M54.40 Lumbago with sciatica, unspecified side (principal); I10 Essential (primary) hypertension
CPT/HCPCS: 96372; 99283; J1885; J3490; A9270

== ENCOUNTER 2024-04-16 10:38 | Emergency (ER) | payer MEDICARE, SELFPAY ==
[2024-04-16 10:56] VITALS: BP 168/81; PULSE 72; RESP 17; TEMP 36.5; O2SAT 97; BMI 31.3
[2024-04-16] MEDS: KETOROLAC INJ 60 MG/2 ML VIAL 30 MG IM (11:18)
[2024-04-16] MEDS: GABAPENTIN 300 MG CAPSULE PO (11:18)
--- NOTE | 2024-04-16 12:04 | EDNOTE_ITS ---
ED Back Injury Pain RME/HPI General Chief Complaint: Back Pain/Injury Stated Complaint: BACK SPASMS Time Seen by Provider: 04/16/24 11:03 Source: patient Arrival date/time: 04/16/24 10:38 63-year-old female with a history of hyperlipidemia, chronic back pain, type 2 diabetes, hypertension presents to the emergency room with a chief complaint of breakthrough back pain and back spasms that began this morning. Patient states she ran out of her medication to help her with her breakthrough pain. Mode of arrival: ambulatory Limitations: no limitations Related Data Home Medications ?Medication ?Instructions ?Recorded ?Confirmed pravastatin 40 mg tablet 40 mg PO QPM 08/05/23 Previous Rx's ?Medication ?Instructions ?Recorded blood-glucose meter #1 ea 08/10/23 insulin glargine 100 unit/mL 50 unit (0.5 mL) SCi HS # 10 mL 08/11/23 subcutaneous solution (Lantus U-100 Insulin) Held on 08/24/23. 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 meter,continuous #1 ea 08/24/23 (FreeStyle Branden 3 [employer] [place]) gabapentin 300 mg capsule 300 mg PO BID #120 caps 08/14 11/06 Held on 01/10/24. 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 sensor (FreeStyle #2 ea 10/11/23 Branden 3 Sensor device) insulin syringe-needle U-100 1 mL #100 ea 10/11/23 28 gauge x 1/2 (BD Insulin Syringe) nitrofurantoin macrocrystal 100 mg 100 mg PO BID #10 c aps 11/08/23 capsule blood sugar diagnostic (Blood #50 ea 01/10/24 Glucose Test strips) blood-glucose meter (Blood Glucose #1 ea 01/10/24 Monitoring kit) carvedilol 6.25 mg tablet 6.25 mg PO BID #60 tabs 12/15 09/05 cholecalciferol (vitamin D3) 1,250 1,250 mcg PO QMONTH #3 tabs 01/10/24 mcg (50,000 unit) tablet duloxetine 60 mg capsule,delayed 60 mg PO QDAY #30 cap s 01/10/24 release insulin lispro-aabc 100 unit/mL 12 unit (0.12 mL) subc ut TID 01/10/24 subcutaneous solution Diabetes 30 days #10.8 mL lancets 33 gauge (TRUEplus Lancets) #100 ea 01/10/24 meclizine 25 mg tablet 25 mg PO QDAY PRN dizziness #10 01/10/24 tabs cyclobenzaprine 10 mg tablet 10 mg PO TID PRN muscle s pasm #10 04/14/24 tabs ibuprofen 600 mg tablet 600 mg PO Q8H PRN pain #20 t abs 04/14/24 ibuprofen 600 mg tablet 600 mg PO Q8H PRN fever or p ain 04/16/24 #20 tabs tramadol 50 mg tablet 50 mg PO QDAY #10 tabs 04/16 Allergies Allergy/AdvReac Type Severity Reaction Status Date / Time codeine Allergy Severe DYSPNEA Verified 04/16/24 10:42 iodine Allergy Severe HIVES Verified 04/16/24 10:42 erythromycin base Allergy Intermediate VOMITING Verified 04/16/24 10:42 atorvastatin AdvReac Severe BODY ACHES Verified 04/16/24 10:42 STATINS AdvReac Severe CONSTIPATED,ABD Uncoded 04/14/24 12:59 CRAMPING Review of Systems Review of Systems Systems Reviewed: All systems reviewed, normal except as documented Constitutional Constitutional: Reports system reviewed and no additional complaints, except as documented, Denies fatigue, Denies fever(s), Denies headache(s) and Denies weakness Eyes Eyes: Reports system reviewed and no additional complaints, except as documented, Denies blurry vision and Denies change in vision ENT Ears, Nose, Mouth, and Throat: Reports system reviewed and no additional complaints, except as documented, Denies otalgia, Denies headache(s), Denies nasal congestion, Denies throat swelling and Denies vertigo Cardiovascular Cardiovascular: Reports system reviewed and no additional complaints, except as documented, Denies chest pain, Denies dyspnea and Denies dyspnea on exertion Respiratory Respiratory: Reports system reviewed and no additional complaints, except as documented, Denies chest congestion, Denies cough, Denies dyspnea, Denies dyspnea on exertion and Denies wheezing Gastrointestinal Gastrointestinal: Reports system reviewed and no additional complaints, except as documented, Denies abdominal pain, Denies cramping, Denies nausea and Denies vomiting Genitourinary Genitourinary: Reports system reviewed and no additional complaints, except as documented Musculoskeletal Musculoskeletal: Reports system reviewed and no additional complaints, except as documented, Reports arthralgias, Reports back pain and Reports limited range of motion Integumentary/Breasts Skin/Breast: Reports system reviewed and no additional complaints, except as documented and Denies wounds Neurologic Neurologic: Reports system reviewed and no additional complaints, except as documented, Denies confusion, Denies headache(s), Denies lack of coordination, Denies vertigo and Denies weakness Psychiatric Psychiatric: Reports system reviewed and no additional complaints, except as documented, Denies anxiety, Denies confusion, Denies depression, Denies paranoia, Denies suicidal ideation and Denies tactile hallucinations Endocrine Endocrine: Reports system reviewed and no additional complaints, except as documented and Denies fatigue Hematologic/Lymphatic Hematologic/Lymphatic: Reports system reviewed and no additional complaints, except as documented and Denies lymphadenopathy Allergic/Immunologic Allergic/Immunologic: Reports system reviewed and no additional complaints, except as documented, Denies throat swelling, Denies urticaria and Denies wheezing ED Exam General Limitations: Present no limitations General appearance: Present alert and in no apparent distress Head Head exam: Present atraumatic Eye Eye exam: Present normal appearance, PERRL and EOMI ENT ENT exam: Present normal exam, normal oropharynx and mucous membranes moist Neck Neck exam: Present normal inspection, full ROM and trachea midline Chest Chest inspection: Present normal inspection and symmetric chest wall rise Respiratory Respiratory exam: Present normal lung sounds bilaterally Cardiovascular Cardiovascular exam: Present regular rate, normal rhythm and normal heart sounds Abdominal Exam Abdominal exam: Present soft and normal bowel sounds Extremities Exam Extremities exam: Present normal inspection and full ROM Back Exam Back exam: Present normal inspection, full ROM, tenderness and vertebral tenderness Back 1 view image: 2 1. Tenderness over the lumbar area of the spine Neurological Exam Neurological exam: Present alert, oriented X3 and CN II-XII intact Psychiatric Psychiatric exam: Present normal affect and normal mood Skin Skin exam: Present warm, dry, intact and normal color Course Quality Measures none Orders Category Date Time Status Gabapentin [Neurontin] Med 04/16/24 11:01 Discontinued 300 mg PO X1 ONE Ketorolac Inj [Toradol Inj] Med 04/16/24 11:01 Discontinued 30 mg IM X1 ONE Vital Signs Vital signs: Vital Signs Temperature 97.7 F 04/16/24 10:56 Pulse Rate 72 04/16/24 10:56 Respiratory Rate 17 04/16/24 10:56 Blood Pressure 168/81 H 04/16/24 10:56 Pulse Oximetry (%) 97 04/16/24 10:56 Oxygen Delivery Method Room Air 04/16/24 10:56 Back Pain / Injury MDM Narrative MDM Narrative:: 63-year-old female with a history of hyperlipidemia, chronic back pain, type 2 diabetes, hypertension presents to the emergency room with a chief complaint of breakthrough back pain and back spasms that began this morning. Patient states she ran out of her medication to help her with her breakthrough pain. Patient is hemodynamically stable and in no apparent distress. Physical examination shows pain to the lumbar area of her spine. This is chronic back pain patient states she sees her primary care provider that manages this. Patient denies any numbness to the lower extremities, loss of bowel or bladder function, or any saddle anesthesia. Pain medication was given to the patient patient was reevaluated in 1 hour with significant improvement to her symptoms. Patient was discharged and educated to follow-up with her primary care provider and vision specialist and return to the emergency room for any evidence of worsening signs or symptoms Patient data External records reviewed:: [facility] previous records Clinical information provided by:: patient Social determinants that could affect healthcare access:: none Patient has the following chronic illnesses:: Hyperlipidemia, type 2 diabetes, chronic back pain How is presenting disease/condition affected by chronic disease/condition?: e xacerbated by Evaluation data The following diagnostics were reviewed and interpreted by me:: lab results and radiology exam(s) Lab and/or radiology exams considered but not ordered:: Labs and radiology exams considered and ordered Interpretation Summary: N/A Medications / Prescriptions Medications or Prescriptions considered but not ordered:: Medication given Medication administrations:: Medication Administration History Discontinued Medications Gabapentin (Gabapentin 300 Mg Capsule) 300 mg PO X1 ONE Stop: 04/16/24 11:02 Last Admin: 04/16/24 11:18 Dose: 300 mg Documented By: OA Ketorolac Tromethamine (Ketorolac Inj 60 Mg/2 Ml Vial) 30 mg IM X1 ONE Stop: 04/16/24 11:02 Last Admin: 04/16/24 11:18 Dose: 30 mg Documented By: OA Medication given Consultations Consultation(s) initiated? (list below): No Diagnosis Differential diagnosis back pain/injury: lumbar radiculopathy, sciatica, strain of lumbar region, thoracic back pain, discitis and other (Chronic back pain) Most likely diagnosis given after review of the tests above:: Chronic back pain Admission Indicated Admission indicated?: not indicated Admission Request Was there a request for admission?: No Disposition Plan Disposition Plan: Discharge Discharge Attestation Discharge Attestation: The patient and all family members were given an opportunity to ask questions and understood the discharge instructions. Discharge instructions specifically effects, indications for sooner follow up or return to the emergency department, and the expected course of current diagnosis. Patient condition: Stable Discharge Plan Plan Patient Disposition: HOME (Self Care) Disposition Comment: Stable Prescriptions/Referrals Prescriptions/Med Rec: New ibuprofen 600 mg tablet 600 mg PO Q8H PRN (Reason: fever or pain) Qty: 20 0RF tramadol 50 mg tablet 50 mg PO QDAY Qty: 10 0RF No Action gabapentin 300 mg capsule 300 mg PO BID Qty: 120 0RF (DME) FreeStyle Branden 3 [place] Misc See Rx Instructions .Route Qty: 1 0RF Rx Instructions: As directed (DME) FreeStyle Branden 3 Sensor Device See Rx Instructions .Route Qty: 2 3RF Rx Instructions: As directed (DME) insulin syringe-needle U-100 [BD Insulin Syringe] 1 mL 28 gauge x 1/2 syringe See Rx Instructions .Route Qty: 100 5RF Rx Instructions: Use TID and PRN with Lispro Insulin Sliding Scale meclizine 25 mg tablet 25 mg PO QDAY PRN (Reason: dizziness) Qty: 10 0RF (DME) lancets [TRUEplus Lancets] 33 gauge misc See Rx Instructions .Route Qty: 100 0RF Rx Instructions: As directed (DME) Blood Glucose Test Strip See Rx Instructions .Route Qty: 50 0RF Rx Instructions: As directed (DME) blood-glucose meter [Blood Glucose Monitoring] Kit See Rx Instructions .Route Qty: 1 1RF Rx Instructions: As directed carvedilol 6.25 mg tablet 6.25 mg PO BID Qty: 60 3RF Rx Instructions: must administer with a meal/food duloxetine 60 mg capsule,delayed release(DR/EC) 60 mg PO QDAY Qty: 30 3RF cholecalciferol (vitamin D3) 1,250 mcg (50,000 unit) tablet 1,250 mcg PO QMONTH Qty: 3 0RF insulin lispro-aabc 100 unit/mL solution 12 unit subcut TID MDD 45 units 30 Days Qty: 10.8 5RF Rx Instructions: Use according to scale from appt. nitrofurantoin macrocrystal 100 mg capsule 100 mg PO BID Qty: 10 0RF Rx Instructions: must administer with a meal/food cyclobenzaprine 10 mg tablet 10 mg PO TID PRN (Reason: muscle spasm) Qty: 10 0RF ibuprofen 600 mg tablet 600 mg PO Q8H PRN (Reason: pain) Qty: 20 0RF pravastatin 40 mg Tablet 40 mg PO QPM (DME) blood-glucose meter Kit See Rx Instructions .Route Qty: 1 0RF Rx Instructions: As directed insulin glargine [Lantus U-100 Insulin] 100 unit/mL Solution 50 unit SCi HS Qty: 10 0RF Referrals: No Primary/Family,Physician [Primary Care Provider] - In 1 week Problem List Clinical Impression: Breakthrough pain, Chronic bilateral low back pain Patient/Caregiver Discharge Instructions Education Materials: ED Chronic Pain, ED Pain, Acute, Uncertain Cause Additional Instructions: Please follow-up with your primary care provider in the next 24 to 48 hours. Medication was sent to your pharmacy please pick it up and take it as indicated. Please continue to follow-up with your primary care provider as you will need a referral to your back specialist for further management of your chronic back pain. For any evidence of worsening signs or symptoms return to the emergency room immediately Print Language: Zambian Stand Alone Forms: Yolanda Award Info., Patient Portal Info Letter PA/WINDOWS SOFTWARE ENGINEER Supervising Physician PA/WINDOWS SOFTWARE ENGINEER Supervising Physician: Dr. Vaughan
== END 2024-04-16 11:48 | disposition home or self-care (01) ==
PROVIDERS: Emergency Provider Emergency Medicine
DX: M54.50 Low back pain, unspecified (principal); G89.29 Other chronic pain
CPT/HCPCS: 96372; 99283; J1885; A9270

== ENCOUNTER 2024-04-17 15:13 | Emergency (ER) | payer MEDICARE, SELFPAY ==
[2024-04-17 15:27] VITALS: BP 136/76; PULSE 76; RESP 19; TEMP 36.8; O2SAT 95; BMI 33.3
--- NOTE | 2024-04-17 15:36 | XR_ITS ---
Examination: CT abdomen and pelvis without contrast. Coronal 3-D reconstructions. Sagittal 2-D reconstructions. Date and time of exam:April 17, 2024 7056 hours Compared to August 04, 2023 INDICATIONS: Onset left-sided flank pain beginning this morning CTDI: vol (mGy): 13.6 DLP: (mGycm): 864 Technique: Axial images of the abdomen have been obtained, 3 mm slice thickness Intravenous contrast material has not been administered. Low dose protocols were performed. One or more of the following dose reduction techniques were used; automated exposure control, adjustment of the mA and/or KV according to patient size, use of iterative reconstruction technique. Findings: No interval liver or splenic lesions Absent gallbladder No extrahepatic biliary tract dilatation No pancreatic or adrenal mass Moderate bilateral renal parenchymal scar formation No renal or ureteral calculi, no hydronephrosis 6 mm fat-containing umbilical hernia Abundant stool throughout the colon No pericecal inflammatory change No bowel obstruction No diverticulitis No bladder mass or bladder calculi Absent uterus No pelvic mass Moderate osteopenia IMPRESSION: Moderate bilateral renal parenchymal scar formation No hydronephrosis renal or ureteral calculi Abundant stool throughout the entire colon, no bowel obstruction
--- NOTE | 2024-04-17 15:37 | XR_ITS ---
Examination: CT lumbar spine, without contrast. 2-D sagittal reconstructions. 2-D coronal reconstructions. 3-D reconstructions. Date and time of exam:April 17, 2024 at 1756 hours Comparison December 18, 2023 INDICATIONS: Onset lower back pain today CTDI: vol (mGy):27 DLP: (mGycm):1104 Technique: Multiple 1.25 mm axial sections of the lumbar spine without intravenous contrast have been obtained. 2-D sagittal and coronal reconstructions have been obtained. 3-D reconstructions have been obtained. Low dose protocols were performed. One or more of the following dose reduction techniques were used; automated exposure control, adjustment of the mA and/or KV according to patient size, use of iterative reconstruction technique. Findings: Significant osteopenia No lumbar vertebral body compression fracture Lumbar pedicles, laminae, transverse and posterior spinous processes intact No spondylolisthesis L5-S1 2 mm central lumbar disc bulge contiguous with the right and left S1 nerve roots L4-L5 2 mm central lumbar disc bulge L3-L4 no disc protrusion L2-L3 no disc protrusion L1-L2 no disc protrusion IMPRESSION: Satisfactory alignment lumbar vertebral bodies No lumbar fracture No spondylolisthesis L5-S1 2 mm central lumbar disc bulge contiguous with the right and left S1 nerve roots L4-L5 2 mm central lumbar disc bulge If low back pain persists, consider elective MRI lumbar spine without contrast follow-up
--- NOTE | 2024-04-17 16:02 | EDNOTE_ITS ---
ED Back Injury Pain RME/HPI General Chief Complaint: Back Pain/Injury Stated Complaint: BACK PAIN Time Seen by Provider: 04/17/24 15:31 Arrival date/time: 04/17/24 15:13 RME / HPI RME / HPI Narrative: DR. SALAS MAIN ED EVALUATION: This section includes all my notes and documentations, including HPI, PE, and ED course.? Juan Salas MD HPI: 63 year old female with past medical history significant for hypertension and depression presents to the Emergency Department with several days of left flank pain. Believes it is related to her chronic pain. No fever. No vomiting. No urinary symptoms. No other complaints. ROS: All negative except as documented in HPI. Physical Exam: General:? Alert and oriented.? No acute distress when remaining still.? Eyes:? Conjunctivae and lids clear. ENT:? No nasal congestion.? ? Neck:? Supple. Heart:? RRR. Lungs:? No respiratory distress.? Good air movement.? No rhonchi, wheezing, rales.? Abdomen:? Soft and nontender.? Back: No CVA tenderness. Legs:? No clubbing, cyanosis, edema. Skin:? Warm and dry.? Neuro:? Alert and oriented X 3.? I reviewed all diagnostic test results. My interpretation of the EKG is? My interpretation of the chest x-ray is My review of the CT report is? Blood tests and urine tests I ordered diagnostic tests. And Toradol and morphine and Rocephin. At 6 PM on 04/17/2024, the care of the patient was transferred to Dr. Graves. Juan Salas MD Related Data Home Medications ?Medication ?Instructions ?Recorded ?Confirmed pravastatin 40 mg tablet 40 mg PO QPM 08/05/23 Previous Rx's ?Medication ?Instructions ?Recorded blood-glucose meter #1 ea 08/10/23 insulin glargine 100 unit/mL 50 unit (0.5 mL) SCi HS # 10 mL 08/11/23 subcutaneous solution (Lantus U-100 Insulin) Held on 08/24/23. 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 meter,continuous #1 ea 08/24/23 (FreeStyle Branden 3 [place]) gabapentin 300 mg capsule 300 mg PO BID #120 caps 08/14 11/06 Held on 01/10/24. 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 sensor (FreeStyle #2 ea 10/11/23 Branden 3 Sensor device) insulin syringe-needle U-100 1 mL #100 ea 10/11/23 28 gauge x 1/2 (BD Insulin Syringe) nitrofurantoin macrocrystal 100 mg 100 mg PO BID #10 c aps 11/08/23 capsule blood sugar diagnostic (Blood #50 ea 01/10/24 Glucose Test strips) blood-glucose meter (Blood Glucose #1 ea 01/10/24 Monitoring kit) carvedilol 6.25 mg tablet 6.25 mg PO BID #60 tabs 12/15 09/05 cholecalciferol (vitamin D3) 1,250 1,250 mcg PO QMONTH #3 tabs 01/10/24 mcg (50,000 unit) tablet duloxetine 60 mg capsule,delayed 60 mg PO QDAY #30 cap s 01/10/24 release insulin lispro-aabc 100 unit/mL 12 unit (0.12 mL) subc ut TID 01/10/24 subcutaneous solution Diabetes 30 days #10.8 mL lancets 33 gauge (TRUEplus Lancets) #100 ea 01/10/24 meclizine 25 mg tablet 25 mg PO QDAY PRN dizziness #10 01/10/24 tabs cyclobenzaprine 10 mg tablet 10 mg PO TID PRN muscle s pasm #10 04/14/24 tabs ibuprofen 600 mg tablet 600 mg PO Q8H PRN pain #20 t abs 04/14/24 ibuprofen 600 mg tablet 600 mg PO Q8H PRN fever or p ain 04/16/24 #20 tabs tramadol 50 mg tablet 50 mg PO QDAY #10 tabs 04/16 Allergies Allergy/AdvReac Type Severity Reaction Status Date / Time codeine Allergy Severe DYSPNEA Verified 04/16/24 10:42 iodine Allergy Severe HIVES Verified 04/16/24 10:42 erythromycin base Allergy Intermediate VOMITING Verified 04/16/24 10:42 atorvastatin AdvReac Severe BODY ACHES Verified 04/16/24 10:42 STATINS AdvReac Severe CONSTIPATED,ABD Uncoded 04/14/24 12:59 CRAMPING Course Quality Measures none Orders Category Date Time Status CT abdomen pelvis wo con Stat Exams 04/17/24 15:[address] lumbar spine wo con Stat Exams 04/17/24 15:37 Ordered CBC Stat Lab 04/17/24 15:51 Completed CMP [Comprehensive Metabolic Panel] Stat Lab 04/17/24 15:51 Completed Magnesium Stat Lab 04/17/24 15:51 Completed UA, C/S IF [Urinalysis, C/S if Indicated] Stat Lab 04/17/24 16:00 Completed Urine Culture Stat Lab 04/17/24 16:00 Received Ketorolac Inj [Toradol Inj] Med 04/17/24 15:35 Discontinued 30 mg IVP X1 ONE Morphine Inj Med 04/17/24 15:35 Discontinued 4 mg IVP X1 ONE Ondansetron Inj [Zofran Inj] Med 04/17/24 15:35 Discontinued 4 mg IV X1 ONE Sodium Chloride 0.9% 1000 ml [Ns] 1,000 ml Med 04/17/24 17:51 Active IV 999 mls/hr cefTRIAXone [Rocephin] 1,000 mg Med 04/17/24 17:51 Active SODIUM CHLORIDE 0.9% (Popper) [Ns 0.9% (P)] 50 ml IV X1 Vital Signs Vital signs: Vital Signs Temperature 98.3 F 04/17/24 15:27 Pulse Rate 76 04/17/24 15:27 Respiratory Rate 19 04/17/24 15:27 Blood Pressure 136/76 H 04/17/24 15:27 Pulse Oximetry (%) 95 04/17/24 15:27 Oxygen Delivery Method Room Air 04/17/24 15:27 Back Pain / Injury MDM Narrative MDM Narrative:: ICarlie am scribing for and in the presence of Dr. Salas. Patient data External records reviewed:: [facility] previous records (Reviewed last ED visit dated 04/16/24, discharged with the following: Breakthrough pain) Clinical information provided by:: patient Social determinants that could affect healthcare access:: none Patient has the following chronic illnesses:: Hypertension and depression How is presenting disease/condition affected by chronic disease/condition?: uneffected by Evaluation data The following diagnostics were reviewed and interpreted by me:: lab results and radiology exam(s) Lab and/or radiology exams considered but not ordered:: none Interpretation Summary: Diagnostics pending Medications / Prescriptions Medications or Prescriptions considered but not ordered:: none Medication administrations:: Medication Administration History Ceftriaxone Sodium 1,000 mg/ (Sodium Chloride) 50 mls @ 100 mls/hr IV X1 ONE Stop: 04/17/24 18:20 Sodium Chloride (Ns) 1,000 mls @ 999 mls/hr IV .Q1H1M ONE Stop: 04/17/24 18:51 Discontinued Medications Ketorolac Tromethamine (Ketorolac Inj 30 Mg/Ml Vial) 30 mg IVP X1 ONE Stop: 04/17/24 15:36 Last Admin: 04/17/24 16:24 Dose: 30 mg Documented By: AVEric Morphine Sulfate (Morphine Sulf Inj 10 Mg/Ml Vial) 4 mg IVP X1 ONE Stop: 04/17/24 15:36 Last Admin: 04/17/24 16:25 Dose: 4 mg Documented By: SYBIL Ondansetron HCl (Ondansetron Inj 2 Mg/Ml Inj 2 Ml) 4 mg IV X1 ONE; Protocol Stop: 04/17/24 15:36 Last Admin: 04/17/24 16:22 Dose: 4 mg Documented By: AVEric Ketorolac inj 30 mg, zofran 4 mg, Morphine 4 mg, IV fluid, Rocephin 1 g IV. Consultations Consultation(s) initiated? (list below): No Diagnosis Differential diagnosis back pain/injury: lumbar radiculopathy, sciatica, strain of lumbar region, renal colic, pyelonephritis and thoracic back pain Most likely diagnosis given after review of the tests above:: Diagnostics pending Admission Indicated Admission indicated?: not indicated Explain why admission is indicated or not indicated:: Diagnostics pending Admission Request Was there a request for admission?: No Disposition Plan Disposition Plan: other (specify) (Care of the patient was transferred to Dr. Graves.) Discharge Plan Prescriptions/Referrals Prescriptions/Med Rec: No Action gabapentin 300 mg capsule 300 mg PO BID Qty: 120 0RF (DME) FreeStyle Branden 3 [place] Misc See Rx Instructions .Route Qty: 1 0RF Rx Instructions: As directed (DME) FreeStyle Branden 3 Sensor Device See Rx Instructions .Route Qty: 2 3RF Rx Instructions: As directed (DME) insulin syringe-needle U-100 [BD Insulin Syringe] 1 mL 28 gauge x 1/2 syringe See Rx Instructions .Route Qty: 100 5RF Rx Instructions: Use TID and PRN with Lispro Insulin Sliding Scale meclizine 25 mg tablet 25 mg PO QDAY PRN (Reason: dizziness) Qty: 10 0RF (DME) lancets [TRUEplus Lancets] 33 gauge misc See Rx Instructions .Route Qty: 100 0RF Rx Instructions: As directed (DME) Blood Glucose Test Strip See Rx Instructions .Route Qty: 50 0RF Rx Instructions: As directed (DME) blood-glucose meter [Blood Glucose Monitoring] Kit See Rx Instructions .Route Qty: 1 1RF Rx Instructions: As directed carvedilol 6.25 mg tablet 6.25 mg PO BID Qty: 60 3RF Rx Instructions: must administer with a meal/food duloxetine 60 mg capsule,delayed release(DR/EC) 60 mg PO QDAY Qty: 30 3RF cholecalciferol (vitamin D3) 1,250 mcg (50,000 unit) tablet 1,250 mcg PO QMONTH Qty: 3 0RF insulin lispro-aabc 100 unit/mL solution 12 unit subcut TID MDD 45 units 30 Days Qty: 10.8 5RF Rx Instructions: Use according to scale from appt. nitrofurantoin macrocrystal 100 mg capsule 100 mg PO BID Qty: 10 0RF Rx Instructions: must administer with a meal/food cyclobenzaprine 10 mg tablet 10 mg PO TID PRN (Reason: muscle spasm) Qty: 10 0RF ibuprofen 600 mg tablet 600 mg PO Q8H PRN (Reason: pain) Qty: 20 0RF pravastatin 40 mg Tablet 40 mg PO QPM (DME) blood-glucose meter Kit See Rx Instructions .Route Qty: 1 0RF Rx Instructions: As directed insulin glargine [Lantus U-100 Insulin] 100 unit/mL Solution 50 unit SCi HS Qty: 10 0RF ibuprofen 600 mg tablet 600 mg PO Q8H PRN (Reason: fever or pain) Qty: 20 0RF tramadol 50 mg tablet 50 mg PO QDAY Qty: 10 0RF Referrals: Soo Joseph MD [Primary Care Provider] - In 1 week Problem List Clinical Impression: Left flank pain, UTI (urinary tract infection) Patient/Caregiver Discharge Instructions Print Language: Setswana
[2024-04-17 16:10] LABS: Basophils # (Auto) 0.1 Thou/mm3 (0.0-0.2); Basophils % (Auto) 1 % (0-2.5); Eosinophils # (Auto) 0.1 Thou/mm3 (0.0-0.5); Eosinophils % (Auto) 2 % (0-10); Hematocrit 40.5 % (36.0-46.0); Hemoglobin 13.6 g/dL (12.0-16.0); Immature Granulocytes % (Auto) 0 % (0-0); Immature Granulocytes Auto 0.03 Thou/mm3 (0.00-0.00); Lymphocytes # (Auto) 2.8 Thou/mm3 (1.0-4.8); Lymphocytes % (Auto) 37 % (10-50); Mean Corpuscular HGB Conc 33.6 g/dl (31.0-37.0); Mean Corpuscular Hemoglobin 30.2 pg (25.0-35.0); Mean Corpuscular Volume 90 fL (80-100); Monocytes # (Auto) 0.5 Thou/mm3 (0.0-0.8); Monocytes % (Auto) 6 % (0-12); Neutrophils # (Auto) 4.2 Thou/mm3 (1.8-7.7); Neutrophils % (Auto) 54 % (37-80); Nucleated Red Blood Cell % 0 /100 WBC (0); Platelet Count 170 Thou/mm3 (140-440); RDW Standard Deviation 42.8 fL (36.4-46.3); White Blood Count 7.7 Thou/mm3 (3.6-11.0)
[2024-04-17 16:20] VITALS: BP 128/68; PULSE 75; RESP 18; O2SAT 96
[2024-04-17] MEDS: ONDANSETRON INJ 2 MG/ML INJ 2 ML 4 MG IV (16:22)
[2024-04-17] MEDS: KETOROLAC INJ 30 MG/ML VIAL IVP (16:24)
[2024-04-17] MEDS: MORPHINE SULF INJ 10 MG/ML VIAL 4 MG IVP ×2 (16:25→18:14)
[2024-04-17 16:31] LABS: Alanine Aminotransferase 10 U/L (10-49); Albumin, Serum 3.8 gm/dL (3.4-4.8); Albumin/Globulin Ratio 1.7 (1.2-2.2); Alkaline Phosphatase 119 U/L (46-116); Anion Gap 5 (7-16); Aspartate Amino Transferase 11 U/L (0-34); BUN/Creatinine Ratio 20 Ratio (12-20); Bilirubin,Total 0.3 mg/dL (0.3-1.2); Blood Urea Nitrogen 14 mg/dL (9-23); Calcium (Corrected) 10.2 mg/dL (8.5-10.1); Carbon Dioxide 28.9 mMol/L (20.0-31.0); Chloride 106 mMol/L (98-107); Creatinine (Component) 0.7 mg/dL (0.6-1.3); Estimated Creatinine Clearance 90.3 mL/min (>60); Globulin 2.3 gm/dL (2.3-3.5); Glucose 383 mg/dL (74-106); Magnesium 1.6 mg/dL (1.6-2.6); Osmolality,Calculated 295 (275-295); Potassium 4.7 mMol/L (3.4-5.1); Sodium 140 mMol/L (136-145); Total Protein 6.1 gm/dL (5.7-8.2); eGFR > 60 See Note
[2024-04-17 16:40] LABS: Collection Type, Urine Clean Catch
[2024-04-17 17:15] LABS: Bilirubin,Urine Negative (Negative); Blood,Urine Negative (Negative); Clarity,Urine Clear (Clear/Hazy); Color,Urine Colorless (Lt Yel-Yel); Glucose, Urine 4+ (Negative); Ketones,Urine Negative (Negative); Leukocyte Esterase,Urine Positive (Negative); Nitrite,Urine Negative (Negative); PH,Urine 7.5 (5.0-7.0); Protein,Urine Negative (Neg - Trace); RBC,Urine 11 /hpf (0-3); Specific Gravity,Urine 1.029 (1.001-1.035); Squamous Epithelial Cell,Urine 1 /hpf (0-5); Urobilinogen,Urine Negative mg/dL (0.0-1.0); WBC,Urine 112 /hpf (0-5)
[2024-04-17 17:18] LABS: Culture Indicated,Urine Yes
--- NOTE | 2024-04-17 18:02 | PD.EDADDENDU ---
Emergency Room Addendum Addendum Narrative: 1800: Care assumed from Dr. Vaughan, the previous shift emergency physician. Past medical, surgical, social and family history reviewed. Vitals and home medications reviewed. Results and treatment plan discussed. I will assume the care of the patient at this time and will follow the patient, pending CT abdomen pelvis and CT lumbar spine. Please refer to the emergency department record for history and examination from initial visit. Patient presents to the ED for complaints of a flare up of her chronic back pain and a possible UTI for the last 5 days. Patient denies any abdominal pain, fever or chills. Patient states she has an appointment with her PCP tomorrow in order to get on a pain management plan. UA is significant for a UTI. Patient is stable to be managed on an outpatient basis. Patient is discharged home. RADIOLOGY RESULTS: [facility] Report Signed Patient: RANDY ORTEGA. Record#: [id number] Birthdate: 1960 Age/Sex: 63 / F Location: [facility] Attending Dr: Ordering Physician: Juan Vaughan MD Date of Service: 04/17/24 Procedure(s): CT abdomen pelvis wo con Accession Number(s): [id number] cc: Juan Vaughan MD; Soo Joseph MD; Haroon Daly MD~ Examination: CT abdomen and pelvis without contrast. Coronal 3-D reconstructions. Sagittal 2-D reconstructions. Date and time of exam:April 17, 2024 7056 hours Compared to August 04, 2023 INDICATIONS: Onset left-sided flank pain beginning this morning CTDI: vol (mGy): 13.6 DLP: (mGycm): 864 Technique: Axial images of the abdomen have been obtained, 3 mm slice thickness Intravenous contrast material has not been administered. Low dose protocols were performed. One or more of the following dose reduction techniques were used; automated exposure control, adjustment of the mA and/or KV according to patient size, use of iterative reconstruction technique. Findings: No interval liver or splenic lesions Absent gallbladder No extrahepatic biliary tract dilatation No pancreatic or adrenal mass Moderate bilateral renal parenchymal scar formation No renal or ureteral calculi, no hydronephrosis 6 mm fat-containing umbilical hernia Abundant stool throughout the colon No pericecal inflammatory change No bowel obstruction No diverticulitis No bladder mass or bladder calculi Absent uterus No pelvic mass Moderate osteopenia IMPRESSION: Moderate bilateral renal parenchymal scar formation No hydronephrosis renal or ureteral calculi Abundant stool throughout the entire colon, no bowel obstruction Dictated By: Haroon Daly MD Signed By: <Electronically signed by Haroon Daly MD in OV> 04/17/241903 [facility] Report Signed Patient: RANDY ORTEGA. Record#: [id number] Birthdate: 1960 Age/Sex: 63 / F Location: [facility] Attending Dr: Ordering Physician: Juan Vaughan MD Date of Service: 04/17/24 Procedure(s): CT lumbar spine wo con Accession Number(s): [id number] cc: Juan Vaughan MD; Soo Joseph MD; Haroon Daly MD~ Examination: CT lumbar spine, without contrast. 2-D sagittal reconstructions. 2-D coronal reconstructions. 3-D reconstructions. Date and time of exam:April 17, 2024 at 1756 hours Comparison December 18, 2023 INDICATIONS: Onset lower back pain today CTDI: vol (mGy):27 DLP: (mGycm):1104 Technique: Multiple 1.25 mm axial sections of the lumbar spine without intravenous contrast have been obtained. 2-D sagittal and coronal reconstructions have been obtained. 3-D reconstructions have been obtained. Low dose protocols were performed. One or more of the following dose reduction techniques were used; automated exposure control, adjustment of the mA and/or KV according to patient size, use of iterative reconstruction technique. Findings: Significant osteopenia No lumbar vertebral body compression fracture Lumbar pedicles, laminae, transverse and posterior spinous processes intact No spondylolisthesis L5-S1 2 mm central lumbar disc bulge contiguous with the right and left S1 nerve roots L4-L5 2 mm central lumbar disc bulge L3-L4 no disc protrusion L2-L3 no disc protrusion L1-L2 no disc protrusion IMPRESSION: Satisfactory alignment lumbar vertebral bodies No lumbar fracture No spondylolisthesis L5-S1 2 mm central lumbar disc bulge contiguous with the right and left S1 nerve roots L4-L5 2 mm central lumbar disc bulge If low back pain persists, consider elective MRI lumbar spine without contrast follow-up Dictated By: Haroon Daly MD Signed By: <Electronically signed by Haroon Daly MD in OV> 04/17/24 [id number]
[2024-04-17] MEDS: SODIUM CHLORIDE 0.9% 1000 ML 1,000 ML 999 ML IV (18:13)
[2024-04-17] MEDS: cefTRIAXone 1,000 MG in SODIUM CHLORIDE 0.9% (Popper) 50 ML 100 MG IV (18:14)
[2024-04-17 18:16] VITALS: BP 136/75; PULSE 69; RESP 18; TEMP 36.9; O2SAT 98
[2024-04-17 18:23] VITALS: BP 136/75; PULSE 72; RESP 18; TEMP 36.4; O2SAT 98
[2024-04-17] MEDS: ACETAMINOPHEN IVPB 1,000 MG/100 ML VIAL 250 MG IV (19:26)
[2024-04-17 21:30] VITALS: BP 142/79; PULSE 65; RESP 16; TEMP 36.4; O2SAT 98
== END 2024-04-17 21:31 | disposition home or self-care (01) ==
PROVIDERS: Emergency Medicine; Emergency Provider Emergency Medicine; PCP General Practice
DX: N39.0 Urinary tract infection, site not specified (principal); I10 Essential (primary) hypertension; M51.360 Other intervertebral disc degeneration, lumbar region with discogenic back pain only; M51.379 Other intervertebral disc degeneration, lumbosacral region without mention of lumbar back pain or lower extremity pain
CPT/HCPCS: 36415; 72131; 74176; 80053; 81001; 83735; 85025; 87086; 96365; 96367; 96375; 96376; 99284; J0131; J0696; J1885; J2270; J2405; J7030; J7050

== ENCOUNTER 2024-04-18 14:06 | Outpatient (AMB) | payer MEDICARE, SELFPAY ==
[2024-04-18 14:13] VITALS: BP 127/74; PULSE 66; RESP 14; TEMP 36.2; O2SAT 97; BMI 32.6
--- NOTE | 2024-04-18 14:13 | ACNOTE_ITS ---
Vital Signs 04/18/24 14:13 Height 1.7 m Height Method Stated Weight 94.546 kg Weight Measurement Method Standing Scale BMI 32.6 BP 127/74 Blood Pressure Source Automatic Cuff Blood Pressure Location Left Upper Arm Position Sitting Respiration 14 Pulse 66 Pulse Source Monitor Temp 97.2 F Temp Source Oral Pulse Oximetry (%) 97 Oxygen Delivery Method Room Air Allergies/Meds Allergies & Medications Allergies codeine Allergy (Severe, Verified 04/18/24 14:14) DYSPNEA iodine Allergy (Severe, Verified 04/18/24 14:14) HIVES erythromycin base Allergy (Intermediate, Verified 04/18/24 14:14) VOMITING atorvastatin Adverse Reaction (Severe, Verified 04/18/24 14:14) BODY ACHES STATINS Adverse Reaction (Severe, Uncoded 04/18/24 14:14) CONSTIPATED,ABD CRAMPING Medication Reconciliation pravastatin 40 mg tablet 40 mg PO QPM 08/05/23 [History Confirmed 04/18/24] blood-glucose meter #1 ea 08/10/23 [Rx Confirmed 04/18/24] insulin glargine 100 unit/mL subcutaneous solution (Lantus U-100 Insulin) 50 unit (0.5 mL) SCi HS #10 mL 08/11/23 [Rx Confirmed 04/18/24] Held on 08/24/23. 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 meter,continuous (FreeStyle Branden 3 [place]) #1 ea 08/24/23 [Rx Confirmed 04/18/24] gabapentin 300 mg capsule 300 mg PO BID #120 caps 09/11/23 [Rx Confirmed 04/18/24] Held on 01/10/24. 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 sensor (FreeStyle Branden 3 Sensor device) #2 ea 10/11/23 [Rx Confirmed 04/18/24] insulin syringe-needle U-100 1 mL 28 gauge x 1/2 (BD Insulin Syringe) #100 ea 10/11/23 [Rx Confirmed 04/18/24] nitrofurantoin macrocrystal 100 mg capsule 100 mg PO BID #10 caps 11/08/23 [Rx Confirmed 04/18/24] blood sugar diagnostic (Blood Glucose Test strips) #50 ea 01/10/24 [Rx Confirmed 04/18/24] blood-glucose meter (Blood Glucose Monitoring kit) #1 ea 01/10/24 [Rx Confirmed 04/18/24] carvedilol 6.25 mg tablet 6.25 mg PO BID #60 tabs 01/10/24 [Rx Confirmed 04/18/24] cholecalciferol (vitamin D3) 1,250 mcg (50,000 unit) tablet 1,250 mcg PO QMONTH #3 tabs 01/10/24 [Rx Confirmed 04/18/24] duloxetine 60 mg capsule,delayed release 60 mg PO QDAY #30 caps 01/10/24 [Rx Confirmed 04/18/24] insulin lispro-aabc 100 unit/mL subcutaneous solution 12 unit (0.12 mL) subcut TID Diabetes 30 days #10.8 mL 01/10/24 [Rx Confirmed 04/18/24] lancets 33 gauge (TRUEplus Lancets) #100 ea 01/10/24 [Rx Confirmed 04/18/24] meclizine 25 mg tablet 25 mg PO QDAY PRN dizziness #10 tabs 01/10/24 [Rx Confirmed 04/18/24] ibuprofen 600 mg tablet 600 mg PO Q8H PRN pain #20 tabs 04/14/24 [Rx Confirmed 04/18/24] ibuprofen 600 mg tablet 600 mg PO Q8H PRN fever or pain #20 tabs 04/16/24 [Rx Confirmed 04/18/24] tramadol 50 mg tablet 50 mg PO QDAY #10 tabs 04/16/24 [Rx Confirmed 04/18/24] hydrocodone 5 mg-acetaminophen 325 mg tablet 1 tab PO Q6H PRN pain #14 tabs 04/17/24 [Rx Confirmed 04/18/24] cyclobenzaprine 10 mg tablet 10 mg PO HS PRN muscle spasm #14 tabs 04/18/24 [Rx] MA Intake Visit Data Collection New Patient or Established: Established Patient (seen at [facility] within 3 years) Seen by Clinical Staff ONLY (RN/MA): No Reason for Visit:: BACK PAIN Pain Present Currently: Yes Pain Location: Back Pain scale:: 10 Pain Scale Used: Tierney-Goldstein/Numerical [place] Reporter Required: No PCP or OBGYN visit in last 3 months: Yes Date of Last PCP or OBGYN visit: 01/11/24 Hx Now: No Do You Feel Safe at Home: Yes Authorities Contacted: N/A Smoking Status Smoking Status: Never smoker Immunization / Flu Flu Vaccine in the Last 12 Months: No Flu Vaccine Exclusion Criteria: No Exclusion Criteria Past Medical History Past Medical History CARDIAC: Positive Cardiac Disorders, Hypercholesterolemia, Congestive Heart Failure and Hypertension RESPIRATORY: Negative Chronic Obstructive Pulmonary Disease (COPD) or Asthma GENITOURINARY: Negative Renal Disease ENDOCRINE: Positive Endocrine Disorders and Diabetes Mellitus Type 2; Negative Diabetes Mellitus Type 1 HEMATOLOGIC: Negative Sickle Cell Disease PSYCHO/SOCIAL: Positive Depression OTHER HISTORY: Positive Cancer and Cervical Cancer Family History FAMILY HISTORY: Positive Family Cardiac Disorders Surgical History SURGICAL: Positive Pacemaker and Hysterectomy Social History SMOKING STATUS: Smoking status: Never smoker LIVES WITH: Lives With: Alone Patient Portal Questionaires PHQ-9 PHQ-2 Over the last 2 weeks, how often have you been bothered by any of the following problems? 1. Little interest or pleasure in doing things: not at all 2. Feeling down, depressed, or hopeless: not at all Total score: 0 PHQ-9 3. Trouble falling or staying asleep, or sleeping too much: Not at all 4. Feeling tired or having little energy: Not at all 5. Poor appetite or overeating: Not at all 6. Feeling bad about yourself - or that you are a failure or have let yourself or your family down: Not at all 7. Trouble concentrating on things, such as reading the newspaper or watching television: Not at all 8. Moving or speaking so slowly that other people could have noticed? - Or the opposite - being so fidgety or restless that you have been moving around a lot more than usual: not at all 9. Thoughts that you would be better off or of hurting yourself in some way: Not at all Total score: 0 Source: Developed by Drs. Yang Rudd, Caro Calle, Wilver Booker and colleagues, with an educational jeff from [employer]. Depression screen completed yes Social History Tobacco History Smoking Status: Never smoker Domestic Abuse History Do You Feel Safe at Home: Yes Review of Systems Report any current symptoms Only answer those that you have currently: Past Medical History Past Medical History Have you ever been diagnosed with any of the following: Cardiology Problems Hypercholesterolemia: Yes Congestive Heart Failure: Yes Hypertension: Yes Respiratory Problems Chronic Obstructive Pulmonary Disease (COPD): No Asthma: No Genital/Urinary Problems Renal Disease: No Endocrine Problems Diabetes Mellitus Type 1: No Diabetes Mellitus Type 2: Yes Blood Problems Sickle Cell Disease: No Psychologic Problems Depression: Yes Other Problems Cancer: Yes Cervical Cancer: Yes Surgical History Hysterectomy: Yes Pacemaker: Yes History of Present Illness HPI Narrative 63-year-old female with a history of type 2 diabetes, hypertension, pacemaker implantation, insomnia, chronic low back pain, who presents to the walk in clinic due to back pain. Patient says she has chorinc back pain issues, however for the past couple of days shes been getting lower back muscle spams and crapms. Denies any trigger. Patient is able to walk without asssiatnce, has normal range of motion limited by pain. We will order a muscle relaxant and give a toradol shot in office. Objective/Exam Narrative Physical exam: GENERAL: Awake, alert and oriented. No acute distress. HEENT: Normocephalic, atraumatic and nontender.? Pupils are equal and reactive to light and accommodation.? Oral mucosa are moist. NECK: Supple without adenopathy. Traquea midline. Nontender, carotid pulse 2+ bilaterally without bruits, no JVD.? CHEST: Heart rate and rythm normal, no murmurs, gallops auscultated. S1 & 2 normal insensity. Nontender on palpation, no deformity and no crepitus. LUNGS: Lung sounds are clear.? No wheezing, rales or ronchi.? No intercostal subcostal retraction. Room air ABDOMEN: Soft,symmetric , nontender, no guarding or rebound tenderness. No abnormal masses palpated.? No pulsatile masses or bruits.? Bowel sounds are normoactive in all 4 quadrants. EXTREMITIES: Nontender.? No pitting edema.? No cyanosis.? Patient is able to move all 4 extremities. SKIN: No rashes noted. NEURO:? Cranial nerves intact.? There is no focalization.? GCS is 15. Assessment & Plan Diagnosis / Problem List (1) Muscle spasm of back: Status: Acute Assessment & Plan: 63-year-old female with a history of type 2 diabetes, hypertension, pacemaker implantation, insomnia, chronic low back pain, who presents to the walk in clinic due to back pain. Patient says she has chorinc back pain issues, however for the past couple of days shes been getting lower back muscle spams and crapms. Denies any trigger. Patient is able to walk without asssiatnce, has normal range of motion limited by pain. We will order a muscle relaxant and give a toradol shot in office. Plan Patient's care discussed with attending physician, Dr Derek Lara MD PGY3 Office Procedures [facility] Level of Care Nursing/Assessment Patient Status: Established Patient Nursing Assessment/Reassessment: Medication Reconciliation, Update PMH in EMR and Vital Signs Coordination of Care: Complex Care and Chronic Disease 1-5, Consent,records obtained, informed consent, Education Simp Pt/Fam, Lab and Imaging orders and Staff clarify orders Established Patient Charge Established Patient Point Assignment: 100 Established Patient Point Charge: Level 3 (80-115) Injection/Vaccine Admin/Surg Procedure SQ Im Injection: Yes Medication Given Medication Given Medication Given: Yes Documented Dose Given: 30 (Toradol 30 mg IM X 1 dose) Route: IM
== END 2024-04-18 15:21 | disposition home or self-care (01) ==
LOC: HODAHC 14:06
PROVIDERS: PCP General Practice; Referring Provider General Practice; Supervising Provider Internal Medicine; Visit Provider Student in an Organized Health Care Education/Training Program
DX: M62.830 Muscle spasm of back (principal); E11.9 Type 2 diabetes mellitus without complications; I10 Essential (primary) hypertension; Z79.4 Long term (current) use of insulin
CPT/HCPCS: 96372; 99213; J1885; G0463

== ENCOUNTER 2024-06-18 14:08 | Outpatient (AMB) | payer OTHER, SELFPAY ==
[2024-06-18 14:24] VITALS: BP 150/79; PULSE 83; RESP 18; TEMP 36.3; O2SAT 96; BMI 32.8
--- NOTE | 2024-06-18 14:24 | ACNOTE_ITS ---
Vital Signs 06/18/24 14:24 Height 1.7 m Height Method Stated Weight 94.858 kg Weight Measurement Method Standing Scale BMI 32.8 BP 150/79 H Blood Pressure Source Automatic Cuff Blood Pressure Location Right Upper Arm Position Sitting Respiration 18 Pulse 83 Pulse Source Monitor Temp 97.3 F Temp Source Temporal Artery Scan Pulse Oximetry (%) 96 Oxygen Delivery Method Room Air Allergies/Meds Allergies & Medications Allergies codeine Allergy (Severe, Verified 06/18/24 14:25) DYSPNEA iodine Allergy (Severe, Verified 06/18/24 14:25) HIVES erythromycin base Allergy (Intermediate, Verified 06/18/24 14:25) VOMITING atorvastatin Adverse Reaction (Severe, Verified 06/18/24 14:25) BODY ACHES STATINS Adverse Reaction (Severe, Uncoded 06/18/24 14:25) CONSTIPATED,ABD CRAMPING MA Intake Visit Data Collection New Patient or Established: Established Patient (seen at [facility] within 3 years) Seen by Clinical Staff ONLY (RN/MA): No Pain Present Currently: No Pain scale:: 0 Pain Scale Used: Tierney-Goldstein/Numerical Software Systems Analyst Required: No PCP or OBGYN visit in last 3 months: No Hx Now: No Do You Feel Safe at Home: Yes Authorities Contacted: N/A Smoking Status Smoking Status: Never smoker Immunization / Flu Flu Vaccine in the Last 12 Months: No Flu Vaccine Exclusion Criteria: No Exclusion Criteria Past Medical History Past Medical History CARDIAC: Positive Cardiac Disorders, Hypercholesterolemia, Congestive Heart Failure and Hypertension RESPIRATORY: Negative Chronic Obstructive Pulmonary Disease (COPD) or Asthma GENITOURINARY: Negative Renal Disease ENDOCRINE: Positive Endocrine Disorders and Diabetes Mellitus Type 2; Negative Diabetes Mellitus Type 1 HEMATOLOGIC: Negative Sickle Cell Disease PSYCHO/SOCIAL: Positive Depression OTHER HISTORY: Positive Cancer and Cervical Cancer Family History FAMILY HISTORY: Positive Family Cardiac Disorders Surgical History SURGICAL: Positive Pacemaker and Hysterectomy Social History SMOKING STATUS: Smoking status: Never smoker LIVES WITH: Lives With: Alone Patient Portal Questionaires PHQ-9 PHQ-2 Over the last 2 weeks, how often have you been bothered by any of the following problems? 1. Little interest or pleasure in doing things: not at all PHQ-9 8. Moving or speaking so slowly that other people could have noticed? - Or the opposite - being so fidgety or restless that you have been moving around a lot more than usual: not at all Source: Developed by Drs. Yang Rudd, Caro Calle, Wilver Booker and colleagues, with an educational jeff from [employer]. Social History Tobacco History Smoking Status: Never smoker Domestic Abuse History Do You Feel Safe at Home: Yes Review of Systems Report any current symptoms Only answer those that you have currently: Past Medical History Past Medical History Have you ever been diagnosed with any of the following: Cardiology Problems Hypercholesterolemia: Yes Congestive Heart Failure: Yes Hypertension: Yes Respiratory Problems Chronic Obstructive Pulmonary Disease (COPD): No Asthma: No Genital/Urinary Problems Renal Disease: No Endocrine Problems Diabetes Mellitus Type 1: No Diabetes Mellitus Type 2: Yes Blood Problems Sickle Cell Disease: No Psychologic Problems Depression: Yes Other Problems Cancer: Yes Cervical Cancer: Yes Surgical History Hysterectomy: Yes Pacemaker: Yes History of Present Illness HPI Narrative 63-year-old female with past medical history of DM2, hypertension, pacemaker implantation, insomnia, and chronic lower back pain came into the [facility] today as a walk-in due to new discolorations on her skin and scalp. Patient mentioned that she shaved her head given that she was having a lot of excoriations on her scalp which were mostly scattered but were mostly found on the front of her scalp. She mentions that she would like pimples and that she also had excoriation on her right forearm. Patient also mentioned that her back pain has been again being upon for her and that she has been having a lot of numbness and tingling in her feet. She mentioned that she ran out of most of her medications including gabapentin and that she was not monitoring her blood glucose because she did not have any more blood glucose sensors. Today I spoke with the patient and told her that she does she have been sometime before taking multiple medications I will just refill her cyclobenzaprine, gabapentin, blood glucose sensors, and losartan and that I will follow-up with her in 3 weeks after she gets a log of daily blood glucose so they can adjust her insulin regimen. I also prescribed clotrimazole topical for her lesions as it seems to be possibly fungal. Also ordered A1c, lipid panel, CMP, and CBC for routine follow-up 3 weeks. Review of Systems Review of Systems Narrative Review of Systems: Constitutional: Denies sweats, Denies weight loss/gain, Denies fever, Denies chills. HEENT: Denies hearing loss, Denies ear pain, Denies postnasal drip, Denies double vision, Denies blurry vision. Respiratory: Denies shortness of breath, Denies cough, Denies wheezing. Cardiovascular: Denies chest pain, Denies palpitations, Denies sudden loss of consciousness. GI: Denies blood in stool, Denies constipation, Denies abdominal pain, Denies difficulty swallowing, Denies nausea or vomit. : Denies urinary incontinence, Denies pain while urinating, Denies increased urinary frequency. MSK: Denies joint pain, Admits back pain, Denies joint swelling, Denies numbn ess. Skin: Admits rash, Denies itching, Denies easy bruising. Neuro: Denies headaches, Denies dizziness, Denies seizures, admits LE numbness and tingling Objective/Exam General General Appearance: alert, in no apparent distress, comfortable, cooperative and well developed Head Head exam: atraumatic and other (some scattered excoriations in posterior and frontal scalp ) Eye Eye exam: Present normal appearance, PERRL and EOMI ENT ENT exam: Present normal exam, normal oropharynx and mucous membranes moist Neck Neck exam: Present normal inspection and full ROM Resp Respiratory exam: Present normal lung sounds bilaterally Card Cardiovascular exam: Present regular rate and normal rhythm Abdominal Abdominal exam: Present soft and normal bowel sounds Extremities Extremities exam: Present full ROM, normal capillary refill and other (string like excoriation in R upper forearm ) Neuro Neurological exam: Present alert and CN II-XII intact Assessment & Plan Diagnosis / Problem List (1) Hypertension: Status: Acute Qualifiers: Hypertension type: unspecified Qualified Code(s): I10 - Essential (primary) hypertension Assessment & Plan: Blood pressure on this visit was elevated. Plan: Ordered losartan 25 mg daily (2) Diabetes type 2, uncontrolled: Status: Acute Qualifiers: Glycemic state: with hyperglycemia Qualified Code(s): E11.65 - Type 2 diabetes mellitus with hyperglycemia Assessment & Plan: Patient does not know what her blood sugars have been lately as she has not been monitoring them Asked the patient to get all the log of her blood glucoses prior to the next visit Patient states that she has been using her insulin glargine sometimes 40 sometimes 3 units She also uses her sliding scale Plan: Asked patient to bring a log of her blood glucose in the morning Also refilled patient's gabapentin Ordered A1c, CMP, lipid panel, and CBC (3) Tinea capitis: Status: Acute Assessment & Plan: Patient had excoriations on the scalp and her right forearm. Plan: Ordered clotrimazole topical cream for patient to apply on both lesions on her scalp as well as other forearm. (4) Tinea corporis: Status: Acute Assessment & Plan: Patient had excoriations on the scalp and her right forearm. Plan: Ordered clotrimazole topical cream for patient to apply on both lesions on her scalp as well as other forearm. Orders: Orders Ambulatory Hemoglobin A1C 06/18/24 E11.65 - Type 2 diabetes mellitus with hyperglycemia CBC 06/18/24 B35.0 - Tinea barbae and tinea capitis, B35.4 - Tinea corporis Lipid Panel 3 Weeks E11.65 - Type 2 diabetes mellitus with hyperglycemia Comprehensive Metabolic Panel 3 Weeks E11.65 - Type 2 diabetes mellitus with hyperglycemia Office Procedures [facility] Level of Care Nursing/Assessment Patient Status: Established Patient Nursing Assessment/Reassessment: Medication Reconciliation, Update PMH in EMR and Vital Signs Coordination of Care: Complex Care and Chronic Disease 1-5, Consent,records obtained, informed consent, Education Simp Pt/Fam and Staff clarify orders Established Patient Charge Established Patient Point Assignment: 85 Established Patient Point Charge: EP Level 3 (80-115)
== END 2024-06-18 14:55 | disposition home or self-care (01) ==
LOC: HODAHC 14:08
PROVIDERS: Supervising Provider Internal Medicine
DX: B35.4 Tinea corporis (principal); E11.65 Type 2 diabetes mellitus with hyperglycemia; G89.29 Other chronic pain; M54.50 Low back pain, unspecified; I10 Essential (primary) hypertension; Z79.4 Long term (current) use of insulin
CPT/HCPCS: 99213; G0463

== ENCOUNTER 2024-06-24 19:42 | Emergency (ER) | payer OTHER, SELFPAY ==
[2024-06-24 19:44] VITALS: BP 173/90; PULSE 86; RESP 20; TEMP 36.6; O2SAT 95
--- NOTE | 2024-06-24 19:49 | PD.EDBACK ---
ED Back Injury Pain RME/HPI General Chief Complaint: Back Pain/Injury Stated Complaint: BACK SPASMS Time Seen by Provider: 06/24/24 19:47 Arrival date/time: 06/24/24 19:42 RME / HPI RME / HPI Narrative: HPI: 63 y/o female with Hx of CHF, HTN, and Type II DM BIBA from home presents to ED c/o worsening left-sided mid-back pain x approximately 1 hour. Patient reports Hx of intermittent back spasms since the age of 19 that have recently gotten worse. Denies pain to BLL extremities. Also denies any urinary or bowel incontinence. No other complaints. ROS: All negative except as documented in HPI. Physical Exam: General: Alert and oriented. Appears uncomfortable. Eyes: Conjunctivae and lids clear. ENT: No nasal congestion. Neck: Supple. Heart: RRR. Lungs: No respiratory distress. Good air movement. No rhonchi, wheezing, rales. Abdomen: Soft and nontender. Back: Muscle spasms to left side mid back. Skin: Warm and dry. Neuro: Alert and oriented X 3. No peripheral motor deficits. I reviewed EMS notes. I reviewed all diagnostic test results. My interpretation of the thoraco-lumbar x-ray is mild diffuse thoracic and lumbar degenerative disc disease. At this point, diagnoses include muscle spasm of back. Treatment here included Ibuprofen, Lidocaine patch, Cyclobenzaprine. Significant improvement noted. Recommended supportive care. Based on my best medical judgment, made decision no further evaluation or treatment indicated at this time. Patient understands and agrees to the discharge instructions customized and printed, see below. Discharge Instructions from Dr. Vaughan printed for you: 1. Unfortunately, muscle spasms can be very painful. 2. Apply ice or heat if helpful. 3. Ibuprofen/Tylenol as needed. Lidocaine patches and cyclobenzaprine as needed. 4. See a private doctor on 06/25/2024 for recheck and further care. Ask for help with more care not available here in the ER. Such as MRI imaging to accurately diagnose your condition and physical therapy and referrals to see specialists 5. Seek immediate medical care with worsening or with any concerns. Juan Vaughan MD Related Data Home Medications ?Medication ?Instructions ?Recorded ?Confirmed pravastatin 40 mg tablet 40 mg PO QPM 08/05/23 04/18/24 Previous Rx's ?Medication ?Instructions ?Recorded blood-glucose meter #1 ea 08/10/23 insulin glargine 100 unit/mL 50 unit (0.5 mL) SCi HS #10 mL 08/11/23 subcutaneous solution (Lantus U-100 Insulin) Held on 08/24/23. 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,engravings polisher,cont #1 ea 08/24/23 (FreeStyle Branden 3 Gamerco) insulin syringe-needle U-100 1 mL #100 ea 10/11/23 28 gauge x 1/2 (BD Insulin Syringe) nitrofurantoin macrocrystal 100 mg 100 mg PO BID #10 caps 11/08/23 capsule blood sugar diagnostic (Blood #50 ea 01/10/24 Glucose Test strips) blood-glucose meter (Blood Glucose #1 ea 01/10/24 Monitoring kit) cholecalciferol (vitamin D3) 1,250 1,250 mcg PO QMONTH #3 tabs 01/10/24 mcg (50,000 unit) tablet duloxetine 60 mg capsule,delayed 60 mg PO QDAY #30 caps 01/10/24 release insulin lispro-aabc 100 unit/mL 12 unit (0.12 mL) subcut TID 01/10/24 subcutaneous solution Diabetes 30 days #10.8 mL lancets 33 gauge (TRUEplus Lancets) #100 ea 01/10/24 meclizine 25 mg tablet 25 mg PO QDAY PRN dizziness #10 01/10/24 tabs ibuprofen 600 mg tablet 600 mg PO Q8H PRN pain #20 tabs 04/14/24 ibuprofen 600 mg tablet 600 mg PO Q8H PRN fever or pain 04/16/24 #20 tabs hydrocodone 5 mg-acetaminophen 325 1 tab PO Q6H PRN pain #14 tabs 04/17/25 mg tablet blood-glucose sensor (FreeStyle #2 ea 06/18/24 Branden 3 Sensor device) clotrimazole 1 % topical cream 1 applic topical BID #30 grams 06/18/24 cyclobenzaprine 10 mg tablet 10 mg PO HS PRN muscle spasm #14 06/18/24 tabs gabapentin 300 mg capsule 300 mg PO BID #60 caps 06/18/24 losartan 25 mg tablet 25 mg PO QDAY #30 tabs 06/18/24 cyclobenzaprine 10 mg tablet 10 mg PO Q8H PRN muscle spasm #30 06/24/24 tabs lidocaine 5 % topical patch 2 patch topical QDAY PRN pain #30 06/24/24 (Lidoderm) ea Allergies Allergy/AdvReac Type Severity Reaction Status Date / Time codeine Allergy Severe DYSPNEA Verified 06/18/24 14:25 iodine Allergy Severe HIVES Verified 06/18/24 14:25 erythromycin base Allergy Intermediate VOMITING Verified 06/18/24 14:25 atorvastatin AdvReac Severe BODY ACHES Verified 06/18/24 14:25 STATINS AdvReac Severe CONSTIPATED,ABD Uncoded 06/18/24 14:25 CRAMPING Review of Systems Review of Systems Systems Reviewed: All systems reviewed, normal except as documented Past Medical History Past Medical History CARDIAC: Positive Cardiac Disorders, Hypercholesterolemia, Congestive Heart Failure and Hypertension ENDOCRINE: Positive Endocrine Disorders and Diabetes Mellitus Type 2 PSYCHO/SOCIAL: Positive Depression OTHER HISTORY: Positive Cancer and Cervical Cancer Family History FAMILY HISTORY: Positive Family Cardiac Disorders Surgical History SURGICAL: Positive Pacemaker and Hysterectomy ED Exam Narrative Physical exam: Refer to HPI above Course Quality Measures none Orders Category Date Time Status XR thoraco-lumbar 2V Stat Exams 06/24/24 20:19 Completed CYCLObenzaPRINE [Flexeril] Med 06/24/24 19:49 Discontinued 10 mg PO X1 ONE Ibuprofen Tab [Motrin Tab] Med 06/24/24 19:49 Discontinued 800 mg PO X1 ONE Lidocaine 5% Patch Med 06/24/24 19:49 Discontinued 2 patch TOP X1 ONE Vital Signs Vital signs: Vital Signs Temperature 97.8 F 06/24/24 19:44 Pulse Rate 86 06/24/24 19:44 Respiratory Rate 20 06/24/24 19:44 Blood Pressure 173/90 H 06/24/24 19:44 Pulse Oximetry (%) 95 06/24/24 19:44 Oxygen Delivery Method Room Air 06/24/24 19:44 Back Pain / Injury MDM Narrative MDM Narrative:: Scribe Attestation: Thuy Whatley am scribing for and in the presence of Dr. Vaughan. Provider Notation: Although this document has been carefully reviewed, there may still be some phonetic and other typographical errors.? These errors are purely grammatical due to imperfections in the software program and should not be construed in any way to? compromise the substance of the patient's medical care during this visit. 63 y/o female with Hx of CHF, HTN, and Type II DM BIBA from home presents to ED c/o worsening left-sided mid-back pain x approximately 1 hour. Patient data External records reviewed:: [facility] previous records (Reviewed prior ED records from 04/17/24. Patient was seen for Acute exacerbation of chronic low back pain.) and EMS form Clinical information provided by:: patient and EMS Social determinants that could affect healthcare access:: none Patient has the following chronic illnesses:: Hypercholesterolemia, Congestive Heart Failure, Hypertension, Diabetes Mellitus Type 2, Depression, Cervical Cancer How is presenting disease/condition affected by chronic disease/condition?: exacerbated by Evaluation data The following diagnostics were reviewed and interpreted by me:: radiology exam(s) Lab and/or radiology exams considered but not ordered:: None Interpretation Summary: I reviewed all diagnostic test results. My interpretation of the thoraco-lumbar x-ray is mild diffuse thoracic and lumbar degenerative disc disease. Medications / Prescriptions Medications or Prescriptions considered but not ordered:: None Medication administrations:: Medication Administration History Discontinued Medications Cyclobenzaprine HCl (Cyclobenzaprine 5 Mg Tablet) 10 mg PO X1 ONE Stop: 06/24/24 19:50 Last Admin: 06/24/24 20:24 Dose: 10 mg Documented By: JUAN M Ibuprofen (Ibuprofen Tab 400 Mg Tablet) 800 mg PO X1 ONE Stop: 06/24/24 19:50 Last Admin: 06/24/24 20:23 Dose: 800 mg Documented By: JUAN M Lidocaine (Lidocaine 5% 1 Patch) 2 patch TOP X1 ONE Stop: 06/24/24 19:50 Last Admin: 06/24/24 20:24 Dose: 2 patch Documented By: JUAN M Ibuprofen, Lidocaine patch, Cyclobenzaprine. Consultations Consultation(s) initiated? (list below): No Diagnosis Differential diagnosis back pain/injury: lumbar radiculopathy, sciatica, strain of lumbar region, renal colic, pyelonephritis, thoracic back pain and discitis Most likely diagnosis given after review of the tests above:: Muscle spasm of back. Admission Indicated Admission indicated?: not indicated Explain why admission is indicated or not indicated:: With significant improvement, there was no indication for admission. Admission Request Was there a request for admission?: No Disposition Plan Disposition Plan: Discharge Discharge Attestation Discharge Attestation: The patient and all family members were given an opportunity to ask questions and understood the discharge instructions. Discharge instructions specifically effects, indications for sooner follow up or return to the emergency department, and the expected course of current diagnosis. Patient condition: Stable Discharge Plan Plan Patient Disposition: HOME (Self Care) Prescriptions/Referrals Prescriptions/Med Rec: New cyclobenzaprine 10 mg tablet 10 mg PO Q8H PRN (Reason: muscle spasm) Qty: 30 0RF lidocaine [Lidoderm] 5 % adhesive patch,medicated 2 patch topical QDAY PRN (Reason: pain) Qty: 30 0RF Rx Instructions: leave on most painful area for up to 12 hrs No Action (DME) FreeStyle Branden 3 Gamerco Misc See Rx Instructions .Route Qty: 1 0RF Rx Instructions: As directed (DME) insulin syringe-needle U-100 [BD Insulin Syringe] 1 mL 28 gauge x 1/2 syringe See Rx Instructions .Route Qty: 100 5RF Rx Instructions: Use TID and PRN with Lispro Insulin Sliding Scale meclizine 25 mg tablet 25 mg PO QDAY PRN (Reason: dizziness) Qty: 10 0RF (DME) lancets [TRUEplus Lancets] 33 gauge misc See Rx Instructions .Route Qty: 100 0RF Rx Instructions: As directed (DME) Blood Glucose Test Strip See Rx Instructions .Route Qty: 50 0RF Rx Instructions: As directed (DME) blood-glucose meter [Blood Glucose Monitoring] Kit See Rx Instructions .Route Qty: 1 1RF Rx Instructions: As directed duloxetine 60 mg capsule,delayed release(DR/EC) 60 mg PO QDAY Qty: 30 3RF cholecalciferol (vitamin D3) 1,250 mcg (50,000 unit) tablet 1,250 mcg PO QMONTH Qty: 3 0RF insulin lispro-aabc 100 unit/mL solution 12 unit subcut TID MDD 45 units 30 Days Qty: 10.8 5RF Rx Instructions: Use according to scale from appt. nitrofurantoin macrocrystal 100 mg capsule 100 mg PO BID Qty: 10 0RF Rx Instructions: must administer with a meal/food cyclobenzaprine 10 mg tablet 10 mg PO HS PRN (Reason: muscle spasm) Qty: 14 0RF (DME) FreeStyle Branden 3 Sensor Device See Rx Instructions .Route Qty: 2 3RF Rx Instructions: As directed losartan 25 mg tablet 25 mg PO QDAY Qty: 30 1RF clotrimazole 1 % cream 1 applic topical BID Qty: 30 0RF Rx Instructions: Apply to affected area in the arm and head gabapentin 300 mg capsule 300 mg PO BID Qty: 60 1RF ibuprofen 600 mg tablet 600 mg PO Q8H PRN (Reason: pain) Qty: 20 0RF hydrocodone-acetaminophen 5-325 mg tablet 1 tab PO Q6H MDD 4 tabs PRN (Reason: pain) Qty: 14 0RF pravastatin 40 mg Tablet 40 mg PO QPM (DME) blood-glucose meter Kit See Rx Instructions .Route Qty: 1 0RF Rx Instructions: As directed insulin glargine [Lantus U-100 Insulin] 100 unit/mL Solution 50 unit SCi HS Qty: 10 0RF ibuprofen 600 mg tablet 600 mg PO Q8H PRN (Reason: fever or pain) Qty: 20 0RF Referrals: No Primary/Family,Physician [Primary Care Provider] - In 1 week Problem List Clinical Impression: Muscle spasm of back Patient/Caregiver Discharge Instructions Discharge Activity: activity as tolerated Education Materials: ED Back Spasm, No Trauma Additional Instructions: Discharge Instructions from Dr. Vaughan printed for you: 1. Unfortunately, muscle spasms can be very painful. 2. Apply ice or heat if helpful. 3. Ibuprofen/Tylenol as needed. Lidocaine patches and cyclobenzaprine as needed. 4. See a private doctor on 06/25/2024 for recheck and further care. Ask for help with more care not available here in the ER. Such as MRI imaging to accurately diagnose your condition and physical therapy and referrals to see specialists 5. Seek immediate medical care with worsening or with any concerns. Print Language: Norwegian Stand Alone Forms: [employer]olanda Award Info., Patient Portal Info Letter
[2024-06-24 19:54] VITALS: PULSE 90; O2SAT 97; BMI 32.8
--- NOTE | 2024-06-24 20:19 | XR_ITS ---
Examination: Thoracolumbar spine 2 views TECHNIQUE: AP lateral thoracolumbar spine 2 views Reason sign: June 24, 2024 2154 hours INDICATIONS: Worsening back pain beginning one hour ago. FINDINGS: Adequate alignment thoracic and lumbar vertebral bodies visualized No vertebral body fracture Moderate vertebral spondylosis Mild diffuse thoracic lumbar disc narrowing IMPRESSION: Mild diffuse thoracic and lumbar degenerative disc disease
[2024-06-24] MEDS: IBUPROFEN TAB 400 MG TABLET 800 MG PO (20:23)
[2024-06-24] MEDS: LIDOCAINE 5% 1 PATCH 2 PATCH TOP (20:24)
[2024-06-24] MEDS: CYCLObenzaPRINE 5 MG TABLET 10 MG PO (20:24)
--- NOTE | 2024-06-25 | PC.NURSE ---
2200- per provider pt is ok for discharge home. Patient is trying to reach out to family members for a ride home. Waiting in the lobby. charge nurse aware.
== END 2024-06-25 05:15 | disposition home or self-care (01) ==
PROVIDERS: Emergency Provider Emergency Medicine
DX: M51.360 Other intervertebral disc degeneration, lumbar region with discogenic back pain only (principal)
CPT/HCPCS: 72080; 99283; J3490; A9270

== ENCOUNTER 2024-07-09 13:49 | Outpatient (AMB) | payer OTHER, SELFPAY ==
--- NOTE | 2024-07-09 13:59 | ACNOTE_ITS ---
Vital Signs 07/09/24 14:04 Height 1.7 m Height Method Stated BP 134/66 H Blood Pressure Source Automatic Cuff Blood Pressure Location Left Upper Arm Position Sitting Respiration 16 Pulse 78 Pulse Source Monitor Temp 97.2 F Temp Source Oral Pulse Oximetry (%) 97 Oxygen Delivery Method Room Air Allergies/Meds Allergies & Medications Allergies codeine Allergy (Severe, Verified 07/09/24 14:05) DYSPNEA iodine Allergy (Severe, Verified 07/09/24 14:05) HIVES erythromycin base Allergy (Intermediate, Verified 07/09/24 14:05) VOMITING atorvastatin Adverse Reaction (Severe, Verified 07/09/24 14:05) BODY ACHES STATINS Adverse Reaction (Severe, Uncoded 07/09/24 14:05) CONSTIPATED,ABD CRAMPING Medication Reconciliation pravastatin 40 mg tablet 40 mg PO QPM 08/05/23 [History Confirmed 07/09/24] blood-glucose meter #1 ea 08/10/23 [Rx Confirmed 07/09/24] insulin glargine 100 unit/mL subcutaneous solution (Lantus U-100 Insulin) 50 unit (0.5 mL) SCi HS #10 mL 08/11/23 [Rx Confirmed 07/09/24] Held on 08/24/23. 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,shoe puller,cont (Scout [employer]Style Branden 3 [place]) #1 ea 08/24/23 [Rx Confirmed 07/09/24] insulin syringe-needle U-100 1 mL 28 gauge x 1/2 (BD Insulin Syringe) #100 ea 10/11/23 [Rx Confirmed 07/09/24] nitrofurantoin macrocrystal 100 mg capsule 100 mg PO BID #10 caps 11/08/23 [Rx Confirmed 07/09/24] blood sugar diagnostic (Blood Glucose Test strips) #50 ea 01/10/24 [Rx Confirmed 07/09/24] blood-glucose meter (Blood Glucose Monitoring kit) #1 ea 01/10/24 [Rx Confirmed 07/09/24] cholecalciferol (vitamin D3) 1,250 mcg (50,000 unit) tablet 1,250 mcg PO QMONTH #3 tabs 01/10/24 [Rx Confirmed 07/09/24] duloxetine 60 mg capsule,delayed release 60 mg PO QDAY #30 caps 01/10/24 [Rx Confirmed 07/09/24] insulin lispro-aabc 100 unit/mL subcutaneous solution 12 unit (0.12 mL) subcut TID Diabetes 30 days #10.8 mL 01/10/24 [Rx Confirmed 07/09/24] lancets 33 gauge (TRUEplus Lancets) #100 ea 01/10/24 [Rx Confirmed 07/09/24] meclizine 25 mg tablet 25 mg PO QDAY PRN dizziness #10 tabs 01/10/24 [Rx Confirmed 07/09/24] ibuprofen 600 mg tablet 600 mg PO Q8H PRN pain #20 tabs 04/14/24 [Rx Confirmed 07/09/24] ibuprofen 600 mg tablet 600 mg PO Q8H PRN fever or pain #20 tabs 04/16/24 [Rx Confirmed 07/09/24] hydrocodone 5 mg-acetaminophen 325 mg tablet 1 tab PO Q6H PRN pain #14 tabs 04/17/24 [Rx Confirmed 07/09/24] clotrimazole 1 % topical cream 1 applic topical BID #30 grams 06/18/24 [Rx Confirmed 07/09/24] cyclobenzaprine 10 mg tablet 10 mg PO HS PRN muscle spasm #14 tabs 06/18/24 [Rx Confirmed 07/09/24] gabapentin 300 mg capsule 300 mg PO BID #60 caps 06/18/24 [Rx Confirmed 07/09/24] losartan 25 mg tablet 25 mg PO QDAY #30 tabs 06/18/24 [Rx Confirmed 07/09/24] cyclobenzaprine 10 mg tablet 10 mg PO Q8H PRN muscle spasm #30 tabs 06/24/24 [Rx Confirmed 07/09/24] lidocaine 5 % topical patch (Lidoderm) 2 patch topical QDAY PRN pain #30 ea 06/24/24 [Rx Confirmed 07/09/24] amoxicillin 875 mg-potassium clavulanate 125 mg tablet 1 tab PO BID 5 days #10 tabs 07/09/24 [Rx] blood-glucose sensor (FreeStyle Branden 3 Sensor device) #2 ea 07/09/24 [Rx] MA Intake Visit Data Collection New Patient or Established: Established Patient (seen at [facility] within 3 years) Seen by Clinical Staff ONLY (RN/MA): No Pain Present Currently: No Pain scale:: 0 Pain Scale Used: Tierney-Goldstein/Numerical Brake Operator Sheet Metal Required: No PCP or OBGYN visit in last 3 months: Yes Date of Last PCP or OBGYN visit: 06/24/24 Hx Now: Yes Do You Feel Safe at Home: Yes Authorities Contacted: N/A Smoking Status Smoking Status: Never smoker Immunization / Flu Flu Vaccine in the Last 12 Months: Yes Flu Vaccine Exclusion Criteria: No Exclusion Criteria Past Medical History Past Medical History CARDIAC: Positive Cardiac Disorders, Hypercholesterolemia, Congestive Heart Fa ilure and Hypertension RESPIRATORY: Negative Chronic Obstructive Pulmonary Disease (COPD) or Asthma GENITOURINARY: Negative Renal Disease ENDOCRINE: Positive Endocrine Disorders and Diabetes Mellitus Type 2; Negative Diabetes Mellitus Type 1 HEMATOLOGIC: Negative Sickle Cell Disease PSYCHO/SOCIAL: Positive Depression OTHER HISTORY: Positive Cancer and Cervical Cancer Family History FAMILY HISTORY: Positive Family Cardiac Disorders Surgical History SURGICAL: Positive Pacemaker and Hysterectomy Social History SMOKING STATUS: Smoking status: Never smoker SECOND HAND EXPOSURE: second hand exposure: No ALCOHOL: Alcohol Intake: Never HOUSING: Housing: House LIVES WITH: Lives With: Alone Patient Portal Questionaires PHQ-9 PHQ-2 Over the last 2 weeks, how often have you been bothered by any of the following problems? 1. Little interest or pleasure in doing things: not at all 2. Feeling down, depressed, or hopeless: not at all Total score: 0 PHQ-9 3. Trouble falling or staying asleep, or sleeping too much: Not at all 4. Feeling tired or having little energy: Not at all 5. Poor appetite or overeating: Not at all 6. Feeling bad about yourself - or that you are a failure or have let yourself or your family down: Not at all 7. Trouble concentrating on things, such as reading the newspaper or watching television: Not at all 8. Moving or speaking so slowly that other people could have noticed? - Or the opposite - being so fidgety or restless that you have been moving around a lot more than usual: not at all 9. Thoughts that you would be better off or of hurting yourself in some way: Not at all Total score: 0 If you checked off any problems, how difficult have these problems made it for you to do your work, take care of things at home, or get along with other people?: not difficult at all Source: Developed by Drs. Yang Rudd, Caro Calle, Wilver Booker and colleagues, with an educational jeff from [employer]. Depression screen completed yes Social History Living Situation History Marital Status: Single Lives With: Alone Housing: House Tobacco History Smoking Status: Never smoker Second Hand Smoke Exposure: No Alcohol History Alcohol Intake: Never Domestic Abuse History Do You Feel Safe at Home: Yes Review of Systems Report any current symptoms Only answer those that you have currently: Past Medical History Past Medical History Have you ever been diagnosed with any of the following: Cardiology Problems Hypercholesterolemia: Yes Congestive Heart Failure: Yes Hypertension: Yes Respiratory Problems Chronic Obstructive Pulmonary Disease (COPD): No Asthma: No Genital/Urinary Problems Renal Disease: No Endocrine Problems Diabetes Mellitus Type 1: No Diabetes Mellitus Type 2: Yes Blood Problems Sickle Cell Disease: No Psychologic Problems Depression: Yes Other Problems Cancer: Yes Cervical Cancer: Yes Surgical History Hysterectomy: Yes Pacemaker: Yes History of Present Illness HPI Narrative 63-year-old female with past medical history of DM2, hypertension, pacemaker implantation, insomnia, and chronic lower back pain came into the [facility] today for follow-up on labs and on previous skin lesions. Patient stated she did her labs, but these were not found in our system therefore we will order these today. Patient was also supposed to get a log of her blood glucose throughout the past week, but she stated that she forgot about this and that she would do it for the next visit. Patient also stated that her scalp lesions have significantly improved, but that her arm lesion started around the same. Otherwise patient was also seen in the ER due to back pain, she was giving cyclobenzaprine. Given that patient did not to lab work and did not do glucose log I again told the patient the plan to be to labs as well as to bring a log of her blood glucose for the next visit so that we can adequately titrate her insulin regimen. Patient today also stated that she did have some burning sensation while urination, we will also order a UA and will start patient on empiric therapy for now. Told the patient to continue using antifungal ointment prescribed from the previous visit and to also try an antifungal or antidandruff shampoo (for example Nizoral). Patient also stated that she will like to get her food deliver to her room where she resides as she has very high risk of falls and has to go all the way to the kitchen to grab her daily meals. She was given an excuse so that these meals can be provided all the way to her room in order to minimize the risk of falls.Patient also wanted to see a senior information systems architect in order to get her toenails trimmed down and looked at as if they had been extracted previously by podiatry. Review of Systems Review of Systems Narrative Review of Systems: Constitutional: Denies sweats, Denies weight loss/gain, Denies fever, Denies chills. HEENT: Denies hearing loss, Denies ear pain, Denies postnasal drip, Denies double vision, Denies blurry vision. Respiratory: Denies shortness of breath, Denies cough, Denies wheezing. Cardiovascular: Denies chest pain, Denies palpitations, Denies sudden loss of consciousness. GI: Denies blood in stool, Denies constipation, Denies abdominal pain, Denies difficulty swallowing, Denies nausea or vomit. : Denies urinary incontinence, Admits pain while urinating, Denies increased urinary frequency. MSK: Denies joint pain, Admits back pain, Denies joint swelling, Denies numbness. Skin: Admits rash, Denies itching, Denies easy bruising. Neuro: Denies headaches, Denies dizziness, Denies seizures, admits LE num bness and tingling Objective/Exam General General Appearance: alert, in no apparent distress, comfortable, cooperative and well developed Head Head exam: atraumatic and other (some scattered excoriations in posterior and frontal scalp which are improving ) Eye Eye exam: Present normal appearance, PERRL and EOMI ENT ENT exam: Present normal exam, normal oropharynx and mucous membranes moist Neck Neck exam: Present normal inspection and full ROM Resp Respiratory exam: Present normal lung sounds bilaterally Card Cardiovascular exam: Present regular rate and normal rhythm Abdominal Abdominal exam: Present soft and normal bowel sounds Extremities Extremities exam: Present full ROM, normal capillary refill (nails from nail bed in [place] big toes and other toes, whitish discoloration ) and other (string like excoriation in R upper forearm, improving slightly ) Neuro Neurological exam: Present alert and CN II-XII intact Assessment & Plan Diagnosis / Problem List (1) Diabetes type 2, uncontrolled: Status: Acute Qualifiers: Glycemic state: with hyperglycemia Qualified Code(s): E11.65 - Type 2 diabetes mellitus with hyperglycemia Assessment & Plan: Patient did not bring the blood glucose log as she had forgotten. Patient did not do any labs either Plan: Again asked patient to bring a log of her blood glucose in the morning Reordered patient's glucose sensor reordered A1c, CMP, lipid panel, and CBC (2) Tinea capitis: Status: Acute Assessment & Plan: Patient had excoriations on the scalp and her right forearm which are improving Plan: Continue clotrimazole topical cream for patient to apply on both lesions on her scalp as well as other forearm. Use antifungal or antidandruff shampoo. (3) Tinea corporis: Status: Acute Assessment & Plan: Patient had excoriations on the scalp and her right forearm, imrpoving. Plan: Continue clotrimazole topical cream for patient to apply on both lesions on her scalp as well as other forearm. Use antifungal or antidandruff shampoo. (4) Dysuria: Status: Acute Assessment & Plan: Patient has some complaints of burning sensation during urination Plan: Ordered UA Ordered Augmentin for total 5 days to treat empirically for now (5) Onycholysis: Status: Acute Assessment & Plan: Patient has possible onycholysis of the lateral toenails Patient stated that she had been seeing a senior information systems architect in the past they had removed some toenails due to this same symptoms Plan: Referred to podiatry Orders: Referrals Podiatry B35.3 - Tinea pedis Office Procedures OB Clinic LOC & Office Proc's Nursing/Assessment Patient Status: Established Patient OB Clinic Nursing Assessment: BP Monitoring, Medication Reconciliation, Update PMH in EMR and Vital Signs OB Clinic Coordination of Care: Complex Care and Chronic Disease 1-5, Cons ent,records obtained, informed consent, Lab and Imaging orders and Staff clarify orders Established Patient Charge Established Patient Point Assignment: 100 Established Patient Point Charge: EP Level 3 (80-115) TB Screening LTBI Screening: Has patient traveled, was born, or resided for at least 1 month, or frequent border crossing into a country with an elevated TB rate: No Immunosuppression, current or planned (HIV, organ transplant, treated with biologic agents, steroids, or other immunosuppression medication): No Close contact to someone with infectious TB disease during lifetime: No Homelessness or incarceration, current or past: No TB testing indicated at this time (at least 1 yes above): No
[2024-07-09 14:04] VITALS: BP 134/66; PULSE 78; RESP 16; TEMP 36.2; O2SAT 97
== END 2024-07-09 14:52 | disposition home or self-care (01) ==
LOC: HODAHC 13:49
PROVIDERS: Supervising Provider Internal Medicine
DX: E11.65 Type 2 diabetes mellitus with hyperglycemia (principal); B35.0 Tinea barbae and tinea capitis; B35.4 Tinea corporis; R30.0 Dysuria; L60.1 Onycholysis; Z79.4 Long term (current) use of insulin
CPT/HCPCS: 99213; G0463

== ENCOUNTER 2024-07-12 23:05 | Emergency (ER) | payer MEDICARE, SELFPAY ==
[2024-07-12 23:17] VITALS: PULSE 78; RESP 16; O2SAT 98; BMI 31.3
[2024-07-13 00:15] VITALS: BP 170/84; PULSE 82; RESP 16; TEMP 36.7; O2SAT 96
[2024-07-13] MEDS: GABAPENTIN 300 MG CAPSULE PO (00:42)
[2024-07-13] MEDS: traMADol HCL 50 MG TABLET PO (00:59)
[2024-07-13 01:30] VITALS: RESP 18
--- NOTE | 2024-07-13 05:46 | EDNOTE_ITS ---
ED Back Injury Pain RME/HPI General Chief Complaint: Back Pain/Injury Stated Complaint: BACK PAIN Time Seen by Provider: 07/13/24 00:29 Arrival date/time: 07/12/24 23:05 63F with extensive PMH including DM and chronic back pain presents to ED with chronic back pain. Patient ran out of her normal meds including Tramadol 50 mg and Gabapentin 300 mg. Patient denies change in character of pain. Limitations: no limitations Related Data Home Medications ?Medication ?Instructions ?Recorded ?Confirmed pravastatin 40 mg tablet 40 mg PO QPM 08/05/23 Previous Rx's ?Medication ?Instructions ?Recorded blood-glucose meter #1 ea 08/10/23 insulin glargine 100 unit/mL 50 unit (0.5 mL) SCi HS # 10 mL 08/11/23 subcutaneous solution (Lantus U-100 Insulin) Held on 08/24/23. 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 #1 ea 08/24/23 (FreeStyle Branden 3 [place]) insulin syringe-needle U-100 1 mL #100 ea 10/11/23 28 gauge x 1/2 (BD Insulin Syringe) nitrofurantoin macrocrystal 100 mg 100 mg PO BID #10 c aps 11/08/23 capsule blood sugar diagnostic (Blood #50 ea 01/10/24 Glucose Test strips) blood-glucose meter (Blood Glucose #1 ea 01/10/24 Monitoring kit) cholecalciferol (vitamin D3) 1,250 1,250 mcg PO QMONTH #3 tabs 01/10/24 mcg (50,000 unit) tablet duloxetine 60 mg capsule,delayed 60 mg PO QDAY #30 cap s 01/10/24 release insulin lispro-aabc 100 unit/mL 12 unit (0.12 mL) subc ut TID 01/10/24 subcutaneous solution Diabetes 30 days #10.8 mL lancets 33 gauge (TRUEplus Lancets) #100 ea 01/10/24 meclizine 25 mg tablet 25 mg PO QDAY PRN dizziness #10 01/10/24 tabs ibuprofen 600 mg tablet 600 mg PO Q8H PRN pain #20 t abs 04/14/24 ibuprofen 600 mg tablet 600 mg PO Q8H PRN fever or p ain 04/16/24 #20 tabs hydrocodone 5 mg-acetaminophen 325 1 tab PO Q6H PRN pa in #14 tabs 25 mg tablet clotrimazole 1 % topical cream 1 applic topical BID #3 0 grams 06/18/24 cyclobenzaprine 10 mg tablet 10 mg PO HS PRN muscle sp asm #14 06/18/24 tabs gabapentin 300 mg capsule 300 mg PO BID #60 caps 06/18 losartan 25 mg tablet 25 mg PO QDAY #30 tabs 06/18 cyclobenzaprine 10 mg tablet 10 mg PO Q8H PRN muscle s pasm #30 06/24/24 tabs lidocaine 5 % topical patch 2 patch topical QDAY PRN p ain #30 06/24/24 (Lidoderm) ea amoxicillin 875 mg-potassium 1 tab PO BID 5 days #10 t abs 07/09/24 clavulanate 125 mg tablet blood-glucose sensor (FreeStyle #2 ea 07/09/24 Branden 3 Sensor device) gabapentin 300 mg capsule 300 mg PO BID PRN Nerve pain #30 07/13/24 caps Allergies Allergy/AdvReac Type Severity Reaction Status Date / Time codeine Allergy Severe DYSPNEA Verified 07/12/24 23:24 iodine Allergy Severe HIVES Verified 07/12/24 23:24 erythromycin base Allergy Intermediate VOMITING Verified 07/12/24 23:24 atorvastatin AdvReac Severe BODY ACHES Verified 07/12/24 23:24 STATINS AdvReac Severe CONSTIPATED,ABD Uncoded 07/12/24 23:24 CRAMPING Review of Systems Review of Systems Systems Reviewed: All systems reviewed, normal except as documented Constitutional Constitutional: Reports system reviewed and no additional complaints, except as documented, Denies fever(s) and Denies headache(s) ENT Ears, Nose, Mouth, and Throat: Denies disequilibrium and Denies headache(s) Cardiovascular Cardiovascular: Reports system reviewed and no additional complaints, except as documented, Denies chest pain and Denies dyspnea Respiratory Respiratory: Reports system reviewed and no additional complaints, except as documented, Denies cough and Denies dyspnea Gastrointestinal Gastrointestinal: Reports system reviewed and no additional complaints, except as documented, Denies abdominal pain, Denies nausea and Denies vomiting Musculoskeletal Musculoskeletal: Reports as per HPI and Reports back pain Neurologic Neurologic: Reports system reviewed and no additional complaints, except as documented, Denies confusion, Denies disequilibrium and Denies headache(s) Psychiatric Psychiatric: Denies confusion Past Medical History Past Medical History CARDIAC: Positive Cardiac Disorders, Hypercholesterolemia, Congestive Heart Failure and Hypertension RESPIRATORY: Negative Chronic Obstructive Pulmonary Disease (COPD) or Asthma GENITOURINARY: Negative Renal Disease ENDOCRINE: Positive Endocrine Disorders and Diabetes Mellitus Type 2; Negative Diabetes Mellitus Type 1 HEMATOLOGIC: Negative Sickle Cell Disease PSYCHO/SOCIAL: Positive Depression OTHER HISTORY: Positive Cancer and Cervical Cancer Family History FAMILY HISTORY: Positive Family Cardiac Disorders Surgical History SURGICAL: Positive Pacemaker and Hysterectomy Social History SMOKING STATUS: Never smoker SECOND HAND EXPOSURE: No ED Exam General Limitations: Present no limitations General appearance: Present alert and in no apparent distress Head Head exam: Present atraumatic Eye Eye exam: Present normal appearance, PERRL and EOMI ENT ENT exam: Present normal exam, normal oropharynx and mucous membranes moist Neck Neck exam: Present normal inspection, full ROM and trachea midline Chest Chest inspection: Present normal inspection and symmetric chest wall rise Respiratory Respiratory exam: Present normal lung sounds bilaterally Cardiovascular Cardiovascular exam: Present regular rate, normal rhythm and normal heart sounds Abdominal Exam Abdominal exam: Present soft and normal bowel sounds Extremities Exam Extremities exam: Present normal inspection and full ROM Back Exam Back exam: Present normal inspection and full ROM Neurological Exam Neurological exam: Present alert, oriented X3 and CN II-XII intact Psychiatric Psychiatric exam: Present normal affect and normal mood Skin Skin exam: Present warm, dry, intact and normal color Course Quality Measures none Orders Category Date Time Status Gabapentin [Neurontin] Med 07/13/24 00:29 Discontinued 300 mg PO X1 ONE traMADol HCL [Ultram] Med 07/13/24 00:29 Discontinued 50 mg PO X1 ONE Vital Signs Vital signs: Vital Signs Temperature 98.0 F 07/13/24 00:15 Pulse Rate 82 07/13/24 00:15 Respiratory Rate 16 07/13/24 00:15 Blood Pressure 170/84 H 07/13/24 00:15 Pulse Oximetry (%) 96 07/13/24 00:15 Oxygen Delivery Method Room Air 07/13/24 00:15 O2 at 96% on RA and WNLs Back Pain / Injury MDM Narrative MDM Narrative:: 63F with extensive PMH including DM and chronic back pain presents to ED with chronic back pain. Patient ran out of her normal meds including Tramadol 50 mg and Gabapentin 300 mg. Patient denies change in character of pain. Physical exam reveals well-appearing female. Patient is afebrile, calm, and alert. Meds and RX given. Patient data External records reviewed:: [facility] previous records Clinical information provided by:: patient Social determinants that could affect healthcare access:: none Patient has the following chronic illnesses:: DM and chronic back pain How is presenting disease/condition affected by chronic disease/condition?: caused by Evaluation data The following diagnostics were reviewed and interpreted by me:: other (specify) (none) Lab and/or radiology exams considered but not ordered:: not ordered Interpretation Summary: n/a Medications / Prescriptions Medications or Prescriptions considered but not ordered:: ordered Medication administrations:: Medication Administration History Discontinued Medications Gabapentin (Gabapentin 300 Mg Capsule) 300 mg PO X1 ONE Stop: 07/13/24 00:30 Last Admin: 07/13/24 00:42 Dose: 300 mg Documented By: BRYCE Tramadol HCl (Tramadol Hcl 50 Mg Tablet) 50 mg PO X1 ONE Stop: 07/13/24 00:30 Last Admin: 07/13/24 00:59 Dose: 50 mg Documented By: BYRCE above Consultations Consultation(s) initiated? (list below): No Diagnosis Differential diagnosis back pain/injury: lumbar radiculopathy, sciatica, strain of lumbar region, renal colic, pyelonephritis, thoracic back pain, AAA, discitis and other (chronic back pain) Most likely diagnosis given after review of the tests above:: chronic back pain Admission Indicated Admission indicated?: not indicated Admission Request Was there a request for admission?: No Disposition Plan Disposition Plan: Discharge Discharge Attestation Discharge Attestation: The patient and all family members were given an opportunity to ask questions and understood the discharge instructions. Discharge instructions specifically effects, indications for sooner follow up or return to the emergency department, and the expected course of current diagnosis. Patient condition: Stable Discharge Plan Plan Patient Disposition: HOME (Self Care) Discharge Disposition comment: Stable Prescriptions/Referrals Prescriptions/Med Rec: New gabapentin 300 mg capsule 300 mg PO BID PRN (Reason: Nerve pain) Qty: 30 0RF No Action (DME) FreeStyle Branden 3 [place] Misc See Rx Instructions .Route Qty: 1 0RF Rx Instructions: As directed (DME) insulin syringe-needle U-100 [BD Insulin Syringe] 1 mL 28 gauge x 1/2 syringe See Rx Instructions .Route Qty: 100 5RF Rx Instructions: Use TID and PRN with Lispro Insulin Sliding Scale meclizine 25 mg tablet 25 mg PO QDAY PRN (Reason: dizziness) Qty: 10 0RF (DME) lancets [TRUEplus Lancets] 33 gauge misc See Rx Instructions .Route Qty: 100 0RF Rx Instructions: As directed (DME) Blood Glucose Test Strip See Rx Instructions .Route Qty: 50 0RF Rx Instructions: As directed (DME) blood-glucose meter [Blood Glucose Monitoring] Kit See Rx Instructions .Route Qty: 1 1RF Rx Instructions: As directed duloxetine 60 mg capsule,delayed release(DR/EC) 60 mg PO QDAY Qty: 30 3RF cholecalciferol (vitamin D3) 1,250 mcg (50,000 unit) tablet 1,250 mcg PO QMONTH Qty: 3 0RF insulin lispro-aabc 100 unit/mL solution 12 unit subcut TID MDD 45 units 30 Days Qty: 10.8 5RF Rx Instructions: Use according to scale from appt. (DME) FreeStyle Branden 3 Sensor Device See Rx Instructions .Route Qty: 2 3RF Rx Instructions: As directed amoxicillin-pot clavulanate 875-125 mg tablet 1 tab PO BID 5 Days Qty: 10 0RF nitrofurantoin macrocrystal 100 mg capsule 100 mg PO BID Qty: 10 0RF Rx Instructions: must administer with a meal/food cyclobenzaprine 10 mg tablet 10 mg PO HS PRN (Reason: muscle spasm) Qty: 14 0RF losartan 25 mg tablet 25 mg PO QDAY Qty: 30 1RF clotrimazole 1 % cream 1 applic topical BID Qty: 30 0RF Rx Instructions: Apply to affected area in the arm and head gabapentin 300 mg capsule 300 mg PO BID Qty: 60 1RF ibuprofen 600 mg tablet 600 mg PO Q8H PRN (Reason: pain) Qty: 20 0RF hydrocodone-acetaminophen 5-325 mg tablet 1 tab PO Q6H MDD 4 tabs PRN (Reason: pain) Qty: 14 0RF pravastatin 40 mg Tablet 40 mg PO QPM (DME) blood-glucose meter Kit See Rx Instructions .Route Qty: 1 0RF Rx Instructions: As directed insulin glargine [Lantus U-100 Insulin] 100 unit/mL Solution 50 unit SCi HS Qty: 10 0RF ibuprofen 600 mg tablet 600 mg PO Q8H PRN (Reason: fever or pain) Qty: 20 0RF cyclobenzaprine 10 mg tablet 10 mg PO Q8H PRN (Reason: muscle spasm) Qty: 30 0RF lidocaine [Lidoderm] 5 % adhesive patch,medicated 2 patch topical QDAY PRN (Reason: pain) Qty: 30 0RF Rx Instructions: leave on most painful area for up to 12 hrs Problem List Clinical Impression: Chronic back pain Patient/Caregiver Discharge Instructions Additional Instructions: Please follow-up with PCP within 24-48 hours and return immediately if symptoms worsen. Print Language: Upper Sorbian Stand Alone Forms: Patient Portal Info Letter PA/AQUILINO Supervising Physician DILAN/AQUILINO Supervising Physician: Dr. Vaughan
== END 2024-07-13 01:30 | disposition home or self-care (01) ==
LOC: SERX 07-13 01:13
PROVIDERS: Emergency Provider Emergency Medicine
DX: M54.9 Dorsalgia, unspecified (principal); G89.29 Other chronic pain
CPT/HCPCS: 99282; A9270

== ENCOUNTER 2024-07-14 12:39 | Emergency (ER) | payer MEDICARE, SELFPAY ==
[2024-07-14 12:43] VITALS: PULSE 91; RESP 16; O2SAT 99; BMI 32.8
[2024-07-14 12:49] VITALS: BP 170/83; PULSE 74; RESP 18; TEMP 36.7; O2SAT 95
[2024-07-14] MEDS: KETOROLAC INJ 60 MG/2 ML VIAL 30 MG IM (14:01)
[2024-07-14] MEDS: DIAZEPAM 5 MG TABLET 10 MG PO ×2 (14:02→17:01)
--- NOTE | 2024-07-14 14:08 | PD.EDBACK ---
ED Back Injury Pain RME/HPI General Chief Complaint: Back Pain/Injury Stated Complaint: BACK PAIN Arrival date/time: 07/14/24 12:39 RME / HPI RME / HPI Narrative: 63 year old female with a history of chronic back pain presents to the ED for evaluation of back pain. She states the pain is unchanged from her baseline chronic pain. She was previously evaluated here yesterday for similar pain, which improved with pain medications administered at that time. At home, she takes gabapentin for pain management. She is not currently followed by a pain specialist but reports having an upcoming appointment with her PCP on Monday to discuss a referral to pain management. She denies any new or associated symptoms. Patient is ambulatory with the assistance of a cane. Related Data Home Medications ?Medication ?Instructions ?Recorded ?Confirmed pravastatin 40 mg tablet 40 mg PO QPM 08/05/23 07/09/24 Previous Rx's ?Medication ?Instructions ?Recorded blood-glucose meter #1 ea 08/10/23 insulin glargine 100 unit/mL 50 unit (0.5 mL) SCi HS #10 mL 08/11/23 subcutaneous solution (Lantus U-100 Insulin) Held on 08/24/23. 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 #1 ea 08/24/23 (FreeStyle Branden 3 [place]) insulin syringe-needle U-100 1 mL #100 ea 10/11/23 28 gauge x 1/2 (BD Insulin Syringe) nitrofurantoin macrocrystal 100 mg 100 mg PO BID #10 caps 11/08/23 capsule blood sugar diagnostic (Blood #50 ea 01/10/24 Glucose Test strips) blood-glucose meter (Blood Glucose #1 ea 01/10/24 Monitoring kit) cholecalciferol (vitamin D3) 1,250 1,250 mcg PO QMONTH #3 tabs 01/10/24 mcg (50,000 unit) tablet duloxetine 60 mg capsule,delayed 60 mg PO QDAY #30 caps 01/10/24 release insulin lispro-aabc 100 unit/mL 12 unit (0.12 mL) subcut TID 01/10/24 subcutaneous solution Diabetes 30 days #10.8 mL lancets 33 gauge (TRUEplus Lancets) #100 ea 01/10/24 meclizine 25 mg tablet 25 mg PO QDAY PRN dizziness #10 01/10/24 tabs ibuprofen 600 mg tablet 600 mg PO Q8H PRN pain #20 tabs 04/14/24 ibuprofen 600 mg tablet 600 mg PO Q8H PRN fever or pain 04/16/24 #20 tabs hydrocodone 5 mg-acetaminophen 325 1 tab PO Q6H PRN pain #14 tabs 04/17/24 mg tablet clotrimazole 1 % topical cream 1 applic topical BID #30 grams 06/18/24 cyclobenzaprine 10 mg tablet 10 mg PO HS PRN muscle spasm #14 06/18/24 tabs gabapentin 300 mg capsule 300 mg PO BID #60 caps 06/18/24 losartan 25 mg tablet 25 mg PO QDAY #30 tabs 06/18/24 cyclobenzaprine 10 mg tablet 10 mg PO Q8H PRN muscle spasm #30 06/24/24 tabs lidocaine 5 % topical patch 2 patch topical QDAY PRN pain #30 06/24/24 (Lidoderm) ea blood-glucose sensor (FreeStyle #2 ea 07/09/24 Branden 3 Sensor device) gabapentin 300 mg capsule 300 mg PO BID PRN Nerve pain #30 07/13/24 caps diazepam 10 mg tablet 10 mg PO BID PRN muscle spasm #10 07/14/24 tabs hydrocodone 5 mg-acetaminophen 325 1 tab PO Q8H PRN pain #14 tabs 07/14/24 mg tablet Allergies Allergy/AdvReac Type Severity Reaction Status Date / Time codeine Allergy Severe DYSPNEA Verified 07/14/24 12:40 iodine Allergy Severe HIVES Verified 07/14/24 12:40 erythromycin base Allergy Intermediate VOMITING Verified 07/14/24 12:40 atorvastatin AdvReac Severe BODY ACHES Verified 07/14/24 12:40 STATINS AdvReac Severe CONSTIPATED,ABD Uncoded 07/14/24 12:40 CRAMPING Review of Systems Review of Systems Narrative Review of Systems: Gen: No fever, no chills, no weight loss EYES: No discharge, no visual changes, no pain HEENT: No ear pain, no congestion, no sore throat PULM: no shortness of breath, no cough, no congestion CV: No chest pain, no dyspnea on exertion, no palpitations, no chest tightness GI: No nausea, no vomiting, no diarrhea, no pain, no constipation : No frequency, no urgency,? no dysuria Musc/skel: No joint pain, +back pain Skin: No rash, no ecchymosis, no lesions Neuro: No weakness, no headache Past Medical History Past Medical History CARDIAC: Positive Cardiac Disorders, Hypercholesterolemia, Congestive Heart Failure and Hypertension ENDOCRINE: Positive Endocrine Disorders and Diabetes Mellitus Type 2 PSYCHO/SOCIAL: Positive Depression OTHER HISTORY: Positive Cancer and Cervical Cancer Family History FAMILY HISTORY: Positive Family Cardiac Disorders Surgical History SURGICAL: Positive Pacemaker and Hysterectomy Social History SMOKING STATUS: Never smoker SECOND HAND EXPOSURE: No ED Exam Narrative Physical exam: GENERAL APPEARANCE: AxOx4, no obvious distress, nontoxic appearing HEENT: NC, AT. MMM. EOMI, clear conjunctiva, oropharynx clear. NECK: Supple without lymphadenopathy. No stiffness or restricted ROM. HEART: Normal rate and regular rhythm, normal S1/S1, no m/r/g LUNGS: CTAB, moving air well. No crackles or wheezes are heard. ABDOMEN: Soft, nontender, nondistended with good bowel sounds heard. BACK: Diffuse back pain bilaterally. No deformity, No CVAT. EXTREMITIES: Without cyanosis, clubbing or edema. MUSCULOSKELETAL: FROM of all major joints, no chest tenderness NEUROLOGICAL: Grossly nonfocal. Alert and oriented, moving all 4 extremities. CN not formally tested but appear grossly intact. Skin: Warm and dry without any rash. Course Quality Measures none Orders Category Date Time Status Diazepam [Valium] Med 07/14/24 13:48 Discontinued 10 mg PO X1 ONE Diazepam [Valium] Med 07/14/24 16:53 Discontinued 10 mg PO X1 ONE HYDROcodone*/APAP 5/325 [[place] 5/325] Med 07/14/24 16:44 Discontinued 1 tab PO X1 ONE Ketorolac Inj [Toradol Inj] Med 07/14/24 13:48 Discontinued 30 mg IM X1 ONE Lidocaine 5% Patch Med 07/14/24 16:45 Discontinued 1 patch TOP X1 ONE Reevaluation(s) Reevaluation #1: Patient complains of back pain. Reports the Valium earlier helped and she was able to rest. Will order a second dose of Valium. Time: 16:50 Reevaluation #2: Patient states her pain has improved. Will DC home with Valium and [place]. Time: 18:30 Vital Signs Vital signs: Vital Signs Temperature 98.0 F 07/14/24 12:49 Pulse Rate 74 07/14/24 12:49 Respiratory Rate 18 07/14/24 12:49 Blood Pressure 170/83 H 07/14/24 12:49 Pulse Oximetry (%) 95 07/14/24 12:49 Oxygen Delivery Method Room Air 07/14/24 12:49 Pulse ox is 95% on room air which is adequate. Back Pain / Injury MDM Narrative MDM Narrative:: Janene Whatley am scribing for and in the presence of Dr. Tejada. Patient data External records reviewed:: [facility] previous records (I reviewed yesterdays ED visit for back pain ) and EMS form Clinical information provided by:: patient Social determinants that could affect healthcare access:: none Patient has the following chronic illnesses:: HTN, DM, chronic back pain How is presenting disease/condition affected by chronic disease/condition?: exacerbated by Evaluation data The following diagnostics were reviewed and interpreted by me:: other (specify) (No diagnostics ordered ) Lab and/or radiology exams considered but not ordered:: None Interpretation Summary: N/A Medications / Prescriptions Medications or Prescriptions considered but not ordered:: None Medication administrations:: Medication Administration History Discontinued Medications Hydrocodone Bitart/Acetaminophen (Hydrocodone/Apap 5/325 Tablet) 1 tab PO X1 ONE Stop: 07/14/24 16:45 Last Admin: 07/14/24 16:57 Dose: 1 tab Documented By: FRANK Diazepam (Diazepam 5 Mg Tablet) 10 mg PO X1 ONE Stop: 07/14/24 13:49 Last Admin: 07/14/24 14:02 Dose: 10 mg Documented By: FORTINO Diazepam (Diazepam 5 Mg Tablet) 10 mg PO X1 ONE Stop: 07/14/24 16:54 Last Admin: 07/14/24 17:01 Dose: 10 mg Documented By: FRANK Ketorolac Tromethamine (Ketorolac Inj 60 Mg/2 Ml Vial) 30 mg IM X1 ONE Stop: 07/14/24 13:49 Last Admin: 07/14/24 14:01 Dose: 30 mg Documented By: FORTINO Lidocaine (Lidocaine 5% 1 Patch) 1 patch TOP X1 ONE Stop: 07/14/24 16:46 Last Admin: 07/14/24 16:57 Dose: 1 patch Documented By: FRANK See above Consultations Consultation(s) initiated? (list below): No Diagnosis Most likely diagnosis given after review of the tests above:: Chronic back pain Admission Indicated Admission indicated?: not indicated Admission Request Was there a request for admission?: No Disposition Plan Disposition Plan: Discharge Discharge Attestation Discharge Attestation: The patient and all family members were given an opportunity to ask questions and understood the discharge instructions. Discharge instructions specifically effects, indications for sooner follow up or return to the emergency department, and the expected course of current diagnosis. Patient condition: Stable Discharge Plan Plan Patient Disposition: HOME (Self Care) Prescriptions/Referrals Prescriptions/Med Rec: New diazepam 10 mg tablet 10 mg PO BID PRN (Reason: muscle spasm) Qty: 10 0RF hydrocodone-acetaminophen 5-325 mg tablet 1 tab PO Q8H MDD 3 tabs/daily PRN (Reason: pain) Qty: 14 0RF No Action (DME) FreeStyle Branden 3 [place] Misc See Rx Instructions .Route Qty: 1 0RF Rx Instructions: As directed (DME) insulin syringe-needle U-100 [BD Insulin Syringe] 1 mL 28 gauge x 1/2 syringe See Rx Instructions .Route Qty: 100 5RF Rx Instructions: Use TID and PRN with Lispro Insulin Sliding Scale meclizine 25 mg tablet 25 mg PO QDAY PRN (Reason: dizziness) Qty: 10 0RF (DME) lancets [TRUEplus Lancets] 33 gauge misc See Rx Instructions .Route Qty: 100 0RF Rx Instructions: As directed (DME) Blood Glucose Test Strip See Rx Instructions .Route Qty: 50 0RF Rx Instructions: As directed (DME) blood-glucose meter [Blood Glucose Monitoring] Kit See Rx Instructions .Route Qty: 1 1RF Rx Instructions: As directed duloxetine 60 mg capsule,delayed release(DR/EC) 60 mg PO QDAY Qty: 30 3RF cholecalciferol (vitamin D3) 1,250 mcg (50,000 unit) tablet 1,250 mcg PO QMONTH Qty: 3 0RF insulin lispro-aabc 100 unit/mL solution 12 unit subcut TID MDD 45 units 30 Days Qty: 10.8 5RF Rx Instructions: Use according to scale from appt. (DME) FreeStyle Branden 3 Sensor Device See Rx Instructions .Route Qty: 2 3RF Rx Instructions: As directed nitrofurantoin macrocrystal 100 mg capsule 100 mg PO BID Qty: 10 0RF Rx Instructions: must administer with a meal/food cyclobenzaprine 10 mg tablet 10 mg PO HS PRN (Reason: muscle spasm) Qty: 14 0RF losartan 25 mg tablet 25 mg PO QDAY Qty: 30 1RF clotrimazole 1 % cream 1 applic topical BID Qty: 30 0RF Rx Instructions: Apply to affected area in the arm and head gabapentin 300 mg capsule 300 mg PO BID Qty: 60 1RF ibuprofen 600 mg tablet 600 mg PO Q8H PRN (Reason: pain) Qty: 20 0RF hydrocodone-acetaminophen 5-325 mg tablet 1 tab PO Q6H MDD 4 tabs PRN (Reason: pain) Qty: 14 0RF gabapentin 300 mg capsule 300 mg PO BID PRN (Reason: Nerve pain) Qty: 30 0RF pravastatin 40 mg Tablet 40 mg PO QPM (DME) blood-glucose meter Kit See Rx Instructions .Route Qty: 1 0RF Rx Instructions: As directed insulin glargine [Lantus U-100 Insulin] 100 unit/mL Solution 50 unit SCi HS Qty: 10 0RF ibuprofen 600 mg tablet 600 mg PO Q8H PRN (Reason: fever or pain) Qty: 20 0RF cyclobenzaprine 10 mg tablet 10 mg PO Q8H PRN (Reason: muscle spasm) Qty: 30 0RF lidocaine [Lidoderm] 5 % adhesive patch,medicated 2 patch topical QDAY PRN (Reason: pain) Qty: 30 0RF Rx Instructions: leave on most painful area for up to 12 hrs Referrals: Lindsey Schuler PA-C [Primary Care Provider] - In 1 week Problem List Clinical Impression: Chronic back pain Patient/Caregiver Discharge Instructions Education Materials: ED Back Care Tips, ED Back Pain (Acute or Chronic) Additional Instructions: Follow-up your primary doctor in 2-3 days for recheck. Print Language: Luxembourgish Stand Alone Forms: Yolanda Award Info., Patient Portal Info Letter
[2024-07-14 16:10] VITALS: BP 164/72; PULSE 79; RESP 18; TEMP 36.9; O2SAT 95
[2024-07-14] MEDS: HYDROcodone/APAP 5/325 TABLET 1 TAB PO (16:57)
[2024-07-14] MEDS: LIDOCAINE 5% 1 PATCH TOP (16:57)
[2024-07-14 18:19] VITALS: BP 178/71; PULSE 71; RESP 17; TEMP 37; O2SAT 96
[2024-07-14 19:18] VITALS: BP 178/71; PULSE 68; RESP 16; TEMP 36.7; O2SAT 97
== END 2024-07-14 19:19 | disposition home or self-care (01) ==
PROVIDERS: Emergency Provider Emergency Medicine; PCP Physician Assistant
DX: M54.9 Dorsalgia, unspecified (principal); G89.29 Other chronic pain
CPT/HCPCS: 96372; 99283; J1885; J3490; A9270

== ENCOUNTER 2024-07-31 10:05 | Outpatient (AMB) | payer MEDICARE, SELFPAY ==
[2024-07-31 10:00] VITALS: BP 184/83; PULSE 92; RESP 18; TEMP 37; O2SAT 97; BMI 33.0
--- NOTE | 2024-07-31 10:00 | PD.RESCLINIC ---
Vital Signs 07/31/24 10:00 Height 1.7 m Height Method Stated Weight 95.311 kg Weight Measurement Method Standing Scale BMI 33.0 BP 184/83 H Blood Pressure Source Automatic Cuff Blood Pressure Location Right Upper Arm Position Sitting Respiration 18 Pulse 92 Pulse Source Monitor Temp 98.6 F Temp Source Temporal Artery Scan Pulse Oximetry (%) 97 Oxygen Delivery Method Room Air Allergies/Meds Allergies & Medications Allergies codeine Allergy (Severe, Verified 07/31/24 10:03) DYSPNEA iodine Allergy (Severe, Verified 07/31/24 10:03) HIVES erythromycin base Allergy (Intermediate, Verified 07/31/24 10:03) VOMITING atorvastatin Adverse Reaction (Severe, Verified 07/31/24 10:03) BODY ACHES STATINS Adverse Reaction (Severe, Uncoded 07/31/24 10:03) CONSTIPATED,ABD CRAMPING Medication Reconciliation pravastatin 40 mg tablet 40 mg PO QPM 08/05/23 [History Confirmed 07/31/24] blood-glucose meter #1 ea 08/10/23 [Rx Confirmed 07/31/24] insulin glargine 100 unit/mL subcutaneous solution (Lantus U-100 Insulin) 50 unit (0.5 mL) SCi HS #10 mL 08/11/23 [Rx Confirmed 07/31/24] Held on 08/24/23. 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,steward/stewardess economy class,cont (FreeStyle Branden 3 [place]) #1 ea 08/24/23 [Rx Confirmed 07/31/24] insulin syringe-needle U-100 1 mL 28 gauge x 1/2 (BD Insulin Syringe) #100 ea 10/11/23 [Rx Confirmed 07/31/24] nitrofurantoin macrocrystal 100 mg capsule 100 mg PO BID #10 caps 11/08/23 [Rx Confirmed 07/31/24] blood sugar diagnostic (Blood Glucose Test strips) #50 ea 01/10/24 [Rx Confirmed 07/31/24] blood-glucose meter (Blood Glucose Monitoring kit) #1 ea 01/10/24 [Rx Confirmed 07/31/24] cholecalciferol (vitamin D3) 1,250 mcg (50,000 unit) tablet 1,250 mcg PO QMONTH #3 tabs 01/10/24 [Rx Confirmed 07/31/24] duloxetine 60 mg capsule,delayed release 60 mg PO QDAY #30 caps 01/10/24 [Rx Confirmed 07/31/24] insulin lispro-aabc 100 unit/mL subcutaneous solution 12 unit (0.12 mL) subcut TID Diabetes 30 days #10.8 mL 01/10/24 [Rx Confirmed 07/31/24] lancets 33 gauge (TRUEplus Lancets) #100 ea 01/10/24 [Rx Confirmed 07/31/24] meclizine 25 mg tablet 25 mg PO QDAY PRN dizziness #10 tabs 01/10/24 [Rx Confirmed 07/31/24] ibuprofen 600 mg tablet 600 mg PO Q8H PRN pain #20 tabs 04/14/24 [Rx Confirmed 07/31/24] ibuprofen 600 mg tablet 600 mg PO Q8H PRN fever or pain #20 tabs 04/16/24 [Rx Confirmed 07/31/24] hydrocodone 5 mg-acetaminophen 325 mg tablet 1 tab PO Q6H PRN pain #14 tabs 04/17/24 [Rx Confirmed 07/31/24] clotrimazole 1 % topical cream 1 applic topical BID #30 grams 06/18/24 [Rx Confirmed 07/31/24] cyclobenzaprine 10 mg tablet 10 mg PO HS PRN muscle spasm #14 tabs 06/18/24 [Rx Confirmed 07/31/24] cyclobenzaprine 10 mg tablet 10 mg PO Q8H PRN muscle spasm #30 tabs 06/24/24 [Rx Confirmed 07/31/24] lidocaine 5 % topical patch (Lidoderm) 2 patch topical QDAY PRN pain #30 ea 06/24/24 [Rx Confirmed 07/31/24] blood-glucose sensor (FreeStyle Branden 3 Sensor device) #2 ea 07/09/24 [Rx Confirmed 07/31/24] diazepam 10 mg tablet 10 mg PO BID PRN muscle spasm #10 tabs 07/14/24 [Rx Confirmed 07/31/24] hydrocodone 5 mg-acetaminophen 325 mg tablet 1 tab PO Q8H PRN pain #14 tabs 07/14/24 [Rx Confirmed 07/31/24] gabapentin 300 mg capsule 300 mg PO BID PRN diabetic neuropathy #30 caps 07/31/24 [Rx] losartan 25 mg tablet 50 mg (2 x 25 mg) PO QDAY #30 tabs 07/31/24 [Rx] nitrofurantoin macrocrystal 100 mg capsule 100 mg PO BID 5 days #10 caps 07/31/24 [Rx] TYLER Intake Visit Data Collection New Patient or Established: Established Patient (seen at [facility] within 3 years) Seen by Clinical Staff ONLY (RN/TYLER): No Pain Present Currently: No Pain scale:: 0 Pain Scale Used: Tierney-Goldstein/Numerical Nurse Anesthesia Program Director Required: No PCP or OBGYN visit in last 3 months: No Hx Now: No Do You Feel Safe at Home: Yes Authorities Contacted: N/A Smoking Status Smoking Status: Never smoker Immunization / Flu Flu Vaccine in the Last 12 Months: No Flu Vaccine Exclusion Criteria: No Exclusion Criteria Past Medical History Past Medical History CARDIAC: Positive Cardiac Disorders, Hypercholesterolemia, Congestive Heart Failure and Hypertension RESPIRATORY: Negative Chronic Obstructive Pulmonary Disease (COPD) or Asthma GENITOURINARY: Negative Renal Disease ENDOCRINE: Positive Endocrine Disorders and Diabetes Mellitus Type 2; Negative Diabetes Mellitus Type 1 HEMATOLOGIC: Negative Sickle Cell Disease PSYCHO/SOCIAL: Positive Depression OTHER HISTORY: Positive Cancer and Cervical Cancer Family History FAMILY HISTORY: Positive Family Cardiac Disorders Surgical History SURGICAL: Positive Pacemaker and Hysterectomy Social History SMOKING STATUS: Smoking status: Never smoker SECOND HAND EXPOSURE: second hand exposure: No ALCOHOL: Alcohol Intake: Never HOUSING: Housing: House LIVES WITH: Lives With: Alone Patient Portal Questionaires PHQ-9 PHQ-2 Over the last 2 weeks, how often have you been bothered by any of the following problems? 1. Little interest or pleasure in doing things: not at all PHQ-9 8. Moving or speaking so slowly that other people could have noticed? - Or the opposite - being so fidgety or restless that you have been moving around a lot more than usual: not at all Source: Developed by Drs. Yang Rudd, Caro Calle, Wilver Booker and colleagues, with an educational jeff from [employer]. Social History Living Situation History Lives With: Alone Housing: House Tobacco History Smoking Status: Never smoker Second Hand Smoke Exposure: No Alcohol History Alcohol Intake: Never Domestic Abuse History Do You Feel Safe at Home: Yes Review of Systems Report any current symptoms Only answer those that you have currently: Past Medical History Past Medical History Have you ever been diagnosed with any of the following: Cardiology Problems Hypercholesterolemia: Yes Congestive Heart Failure: Yes Hypertension: Yes Respiratory Problems Chronic Obstructive Pulmonary Disease (COPD): No Asthma: No Genital/Urinary Problems Renal Disease: No Endocrine Problems Diabetes Mellitus Type 1: No Diabetes Mellitus Type 2: Yes Blood Problems Sickle Cell Disease: No Psychologic Problems Depression: Yes Other Problems Cancer: Yes Cervical Cancer: Yes Surgical History Hysterectomy: Yes Pacemaker: Yes History of Present Illness HPI Narrative A 63-year-old female with a medical history of type 2 diabetes (on insulin), hypertension, hyperlipidemia, pacemaker implantation, insomnia, and chronic low back pain presented to [facility] with complaints of dysuria. The patient reported onset of pain and a burning sensation during urination starting yesterday morning. She denied abdominal pain, nausea, vomiting, fever, or any other associated symptoms. A review of the chart revealed a prior complaint of urinary tract symptoms several months ago, during which a urinalysis and urine culture were ordered. However, the patient does not recall the results, which were sent to the home care group where she resides.. To address her current symptoms, a urine culture and UA were ordered, and the patient was started on nitrofurantoin 100 mg twice daily for 5 days, with the intention to obtain the results before starting antibiotics. Upon presentation, the patient's blood pressure was elevated, with a systolic BP above 170. She is currently taking losartan 25 mg daily and reports good compliance. Given her elevated blood pressure, her losartan dosage was increased to 50 mg daily, and she was instructed to monitor her blood pressure closely at home. The patient appeared confused about her insulin regimen. According to the chart, she is prescribed 50 units of Lantus daily, along with 12 units of a rapid-acting insulin three times a day. However, she reported taking 30 units of Lantus twice daily. The patient did not have her logbook with her, so she was advised to bring it in during her next follow-up in 1?2 weeks for possible regimen adjustments. Her most recent A1c was performed a year ago and will be repeated during this visit. The patient also complained of diabetic neuropathy and reported running out of gabapentin (300 mg twice daily as needed for neuropathy pain). A refill was provided. All questions and concerns were addressed, and the patient was agreeable with the plan. Follow-up is scheduled in 1?2 weeks to reassess blood pressure control and review urine culture results. Patient care was discussed with attending physician Dr. Derek Wood MD PGY-2 I have carefully reviewed this document. Due to imperfections in the voice software, there could be grammatical errors including phonetic/typographic errors. This in no way compromises the medical care the patient is receiving Review of Systems Review of Systems Systems Reviewed: All systems reviewed, normal except as documented Objective/Exam Narrative Physical exam: Physical Exam General: Awake and in no acute distress. Conversational, appears older than stated age, and poor historian. HEENT: Normocephalic, atraumatic, mucous membranes moist. Heart: Regular rate and rhythm, no murmurs. Lungs: Clear to auscultation with no wheezing or crackles. Abdomen: Soft, nondistended, nontender, positive bowel sounds. ?No guarding or rebound tenderness. Neurologic: Alert and oriented x3, no gross neurological deficit, and patient able to move all 4 extremities. Extremities: No edema. Assessment & Plan Diagnosis / Problem List (1) Dysuria: Status: Acute Assessment & Plan: patient cam in with CC of pain, burning sensation during urination, which has started yesterday in a morning Per patient she has been having frequent UTIs. per previos gart reviewsa all Urine cultures were negativ. last visit to clinic was about a month ago, has the same symptoms, abx was prescribe but per patient she doesn't remember if she took abx or not. she is a poor historian and has a impaired memory. Plan: plan 1. repeat urinalisis and urine culture today 2.empirically started nitrofurantoin 100 mg twice daily for 5 days (2) Diabetes type 2, uncontrolled: Status: Acute Qualifiers: Glycemic state: with hyperglycemia Qualified Code(s): E11.65 - Type 2 diabetes mellitus with hyperglycemia Assessment & Plan: per chart review sha has been on a different insulin regimen, 50 U long acting and 12 TIDWM however patient stated that currently she is on lantus 30 units twice daily, patient did not bring blood sugar log. Plan: plan 1. patient was instructed to glenn all her medication list , current actively taking,including insulin regimen 2.have blood sugar log on next appointment so we can adjust insulin based on a numbers 3.we are gonna check Aq1 (3) Hypertension: Status: Acute Qualifiers: Hypertension type: unspecified Qualified Code(s): I10 - Essential (primary) hypertension Assessment & Plan: last 2 appointment blood pressure is elevated, SBP>170, home medication losarta 25 mg daily patient denies any headache, vision changes or any othe assiciated symptoms Plan: 1. increased losartan from 25 mg daily to 50 mg daily 2. patient was advised to regularly check blood presure at home, if SBP<120 can cut the loratan dosage (4) Diabetic nephropathy: Status: Acute Assessment & Plan: last podiatry follow up was more than a year ago home medication gabapentin 300 BID PRN Plan: 1. follow up with Podiatry 2. Gabapentin was refilled (5) Frequent UTI: Status: Acute Plan: pleas see above Orders: Orders Urinalysis 07/31/24 N39.0 - Urinary tract infection, site not specified Urine Culture 07/31/24 N39.0 - Urinary tract infection, site not specified Ambulatory Hemoglobin A1C 07/31/24 E11.65 - Type 2 diabetes mellitus with hyperglycemia CBC 07/31/24 Comprehensive Metabolic Panel 07/31/24 E11.65 - Type 2 diabetes mellitus with hyperglycemia Referrals Podiatry Additional Assessment Attending note: I, Shakeel Reed MD, attest that I was physically present for the perez portions of the service and evaluated the patient with the resident and I reviewed and discussed the case with the resident and agree with the resident's findings and plans of care as documented above. Shakeel Reed MD Physician Billing Established Patient Established Patient: E/M Level 3-CPT 16437 Office Procedures [facility] Level of Care Nursing/Assessment Patient Status: Established Patient Nursing Assessment/Reassessment: Medication Reconciliation, Update PMH in EMR and Vital Signs Coordination of Care: Complex Care and Chronic Disease 1-5, Consent,records obtained, informed consent, Education Simp Pt/Fam, Lab and Imaging orders and Staff clarify orders Established Patient Charge Established Patient Point Assignment: 100 Established Patient Point Charge: Level 3 (80-115)
== END 2024-07-31 10:54 | disposition home or self-care (01) ==
LOC: HODAHC 10:05
PROVIDERS: Supervising Provider Internal Medicine; Visit Provider Student in an Organized Health Care Education/Training Program
DX: N39.0 Urinary tract infection, site not specified (principal); E11.65 Type 2 diabetes mellitus with hyperglycemia; E11.21 Type 2 diabetes mellitus with diabetic nephropathy; Z79.4 Long term (current) use of insulin; I10 Essential (primary) hypertension
CPT/HCPCS: 99213; G0463